=== PATIENT | female | born 1965 | race Caucasian/White ===

== ENCOUNTER 2020-01-13 13:57 | Outpatient (REF) | payer OTHER, SELFPAY ==
[2020-01-13 15:11] LABS: COVID-19 Test Negative (Negative)
[2020-01-13 16:32] LABS: IDNOW Serial# 55D5AD1C
== END 2020-01-13 13:58 | disposition home or self-care (01) ==
LOC: HO.LAB 13:57
PROVIDERS: Visit Provider Internal Medicine
DX: Z20.828 Contact with and (suspected) exposure to other viral communicable diseases (principal)
CPT/HCPCS: 87635; C9803

== ENCOUNTER 2020-01-28 14:21 | Outpatient (REF) | payer OTHER, SELFPAY ==
[2020-01-28 14:46] LABS: COVID-19 Test Negative (Negative)
== END 2020-01-28 14:22 | disposition home or self-care (01) ==
LOC: HO.LAB 14:21
PROVIDERS: Visit Provider Internal Medicine
DX: Z20.828 Contact with and (suspected) exposure to other viral communicable diseases (principal)
CPT/HCPCS: 87635; C9803

== ENCOUNTER 2021-08-30 14:45 | Outpatient (REF) | payer OTHER, SELFPAY ==
--- NOTE | ~2021-08-30 | XR_ITS ---
EXAMINATION: XR CALCANEUS, LEFT CLINICAL INFORMATION: Left achilles pain and swelling. COMPARISON: None TECHNIQUE: Lateral and axial views of the left calcaneus were obtained. FINDINGS: There is no fracture or dislocation or bony destructive process. No ankle capsular effusion. Visualized subtalar joint unremarkable. There is bulky posterior and moderate plantar calcaneal spurs. No erosive change or periostitis. The retrocalcaneal recess is preserved. There is subtle fusiform enlargement distal Achilles approximately 3 cm proximal to the insertion. XR/XR calcaneus LT min 2V IMPRESSION: -Mild fusiform enlargement Achilles. Retrocalcaneal recess preserved. -Posterior and plantar calcaneal spurs.
--- NOTE | ~2021-08-30 | XR_ITS ---
EXAMINATION: XR HAND, RIGHT CLINICAL INFORMATION: Pain right hand COMPARISON: None TECHNIQUE: PA, lateral, and oblique views of the right hand. FINDINGS: No fracture, dislocation, destructive process. Normal bony mineralization. No periarticular demineralization. No carpal narrowing or erosive change or chondrocalcinosis. The MCP and PIP joints are unremarkable. There are some benign small cystic changes first metacarpal head. No no matrix mineralization. No periostitis. There is osteoarthritis involving the DIP joints, greatest index finger and next greatest 34th fingers. No definite erosive change to suggest erosive osteoarthropathy. XR/XR hand RT min 3V IMPRESSION: -Osteoarthritis PIP joint, greatest second, third, fourth fingers.
== END 2021-08-30 14:46 | disposition home or self-care (01) ==
LOC: HO.XRAY 14:45
PROVIDERS: PCP Internal Medicine; Visit Provider Internal Medicine
DX: M79.641 Pain in right hand (principal); R60.0 Localized edema; M76.62 Achilles tendinitis, left leg
CPT/HCPCS: 73130; 73650

== ENCOUNTER 2021-08-31 06:15 | Outpatient (REF) | payer OTHER, SELFPAY ==
[2021-08-31 06:36] LABS: MANUAL DIFF FLAG NO
[2021-08-31 07:40] LABS: Basophils Absolute Auto 0.1 X10*3/uL (0.0-0.2); Basophils Percent Auto 0.9 % (0-2); Eosinophils Absolute Auto 0.2 X10*3/uL (0.0-0.4); Eosinophils Percent Auto 2.4 % (0-4); Hematocrit 39.4 % (37.0-47.0); Hemoglobin 12.7 g/dl (12.0-16.0); Imm Gran Abs Auto 0.03 X10*3/uL (0.00-0.03); Imm Gran Pct Auto 0.4 % (0.0-0.4); Lymphocytes Absolute Auto 3.4 X10*3/uL (1.2-4.9); Lymphocytes Percent Auto 41.9 % (20-40); Mean Corpuscular HGB Conc 32.2 g/dl (31.0-35.0); Mean Corpuscular Hemoglobin 27.4 pg (27.0-33.0); Mean Corpuscular Volume 85.1 fL (80.0-98.0); Mean Platelet Volume 10.7 fL (9.4-12.3); Monocytes Absolute Auto 0.7 X10*3/uL (0.1-1.2); Monocytes Percent Auto 8.7 % (2-11); Neutrophils Absolute Auto 3.7 x10*3/uL (2.0-8.3); Neutrophils Percent Auto 45.7 % (45-73); Platelet Count 251 X10*3/uL (160-400); Red Blood Count 4.63 X10*6/uL (4.20-5.50); Red Cell Distribution Width 13.1 % (11.0-16.0)
[2021-08-31 08:09] LABS: Alanine Aminotransferase 17 U/L (0-31); Albumin Level 4.1 g/dL (3.5-5.0); Alkaline Phosphatase 90 U/L (39-117); Anion Gap 11 (12-20); Aspartate Amino Transferase 20 U/L (5-31); Bilirubin Total 0.3 mg/dL (0.0-1.0); Blood Urea Nitrogen 19 mg/dL (9-16); C Reactive Protein 0.17 mg/dL (< or = 0.50); Calcium 9.2 mg/dL (8.4-10.2); Carbon Dioxide 27 mmol/L (22-29); Chloride 106 mmol/L (96-108); Cholesterol 209 mg/dL; Estimated Glomerular Filt Rate > 60; Glucose Fasting 96 mg/dL (60-99); HDL Cholesterol 55 mg/dL; LDL Cholesterol Calculated 140 mg/dl; Potassium 4.1 mmol/L (3.3-5.1); Sodium 140 mmol/L (135-145); Total Protein 6.9 g/dL (6.5-8.0); Triglycerides 74 mg/dL
== END 2021-08-31 06:16 | disposition home or self-care (01) ==
LOC: HO.LAB 06:15
PROVIDERS: PCP Internal Medicine; Visit Provider Internal Medicine
DX: Z00.00 Encounter for general adult medical examination without abnormal findings (principal); R60.0 Localized edema
CPT/HCPCS: 36415; 80053; 80061; 85025; 86140

== ENCOUNTER 2022-01-12 07:18 | Outpatient (REF) | payer OTHER, SELFPAY ==
[2022-01-12 08:25] LABS: Cholesterol 195 mg/dL; HDL Cholesterol 50 mg/dL; LDL Cholesterol Calculated 125 mg/dl; Triglycerides 100 mg/dL
== END 2022-01-12 07:19 | disposition home or self-care (01) ==
LOC: HO.LAB 07:18
PROVIDERS: PCP Internal Medicine; Visit Provider Internal Medicine
DX: Z13.220 Encounter for screening for lipoid disorders (principal)
CPT/HCPCS: 36415; 80061

== ENCOUNTER 2022-06-20 12:23 | Outpatient (REF) | payer OTHER, SELFPAY ==
--- NOTE | ~2022-06-20 | XR_ITS ---
EXAMINATION: XR HAND, LEFT CLINICAL INFORMATION: Pain fifth finger COMPARISON: None available. TECHNIQUE: PA, lateral, and oblique views of the left hand. FINDINGS: No acute fracture, dislocation. First CMC moderate-severe arthritis, joint space loss, osteophytes, subchondral cysts. Mild first MCP and IP joint arthritis. There is a lucency in the lunate, suboptimally evaluated due to overlapping densities, possible degenerative cysts. There is a fifth DIP joint arthritis, with joint space loss, osteophytes, subchondral cysts.. Arthritis also present in the third and fourth DIP joints. No definite marginal erosions. No abnormal soft tissue calcification. XR/XR hand LT 2V IMPRESSION: *Fifth DIP joint osteoarthritis. Additionally osteoarthritis, as detailed above. *No evidence of acute fracture or dislocation.
== END 2022-06-20 12:24 | disposition home or self-care (01) ==
LOC: HO.XRAY 12:23
PROVIDERS: PCP Internal Medicine; Visit Provider Internal Medicine
DX: M19.042 Primary osteoarthritis, left hand (principal)
CPT/HCPCS: 73120

== ENCOUNTER → 2022-07-31 10:07 | Outpatient (BNVA) | payer OTHER, SELFPAY | PROVIDERS: PCP Internal Medicine; Visit Provider Orthopaedic Surgery ==

== ENCOUNTER 2022-09-17 06:14 | Outpatient (REF) | payer OTHER, SELFPAY ==
[2022-09-17 11:25] LABS: MANUAL DIFF FLAG NO
[2022-09-17 11:55] LABS: Basophils Absolute Auto 0.1 X10*3/uL (0.0-0.2); Basophils Percent Auto 0.9 % (0-2); Eosinophils Absolute Auto 0.2 X10*3/uL (0.0-0.4); Hematocrit 39.8 % (37.0-47.0); Hemoglobin 12.7 g/dl (12.0-16.0); Imm Gran Abs Auto 0.02 X10*3/uL (0.00-0.03); Imm Gran Pct Auto 0.3 % (0.0-0.4); Lymphocytes Percent Auto 46.9 % (20-40); Mean Corpuscular HGB Conc 31.9 g/dl (31.0-35.0); Mean Corpuscular Hemoglobin 27.9 pg (27.0-33.0); Mean Corpuscular Volume 87.5 fL (80.0-98.0); Mean Platelet Volume 10.4 fL (9.4-12.3); Monocytes Absolute Auto 0.6 X10*3/uL (0.1-1.2); Monocytes Percent Auto 9.1 % (2-11); Neutrophils Absolute Auto 2.6 x10*3/uL (2.0-8.3); Neutrophils Percent Auto 39.8 % (45-73); Platelet Count 254 X10*3/uL (160-400); Red Blood Count 4.55 X10*6/uL (4.20-5.50); Red Cell Distribution Width 13.3 % (11.0-16.0); White Blood Count 6.4 X10*3/uL (4.8-10.8)
[2022-09-17 12:34] LABS: Anion Gap 11 (12-20); Blood Urea Nitrogen 13 mg/dL (9-16); Calcium 9.4 mg/dL (8.4-10.2); Carbon Dioxide 29 mmol/L (22-29); Chloride 104 mmol/L (96-108); Cholesterol 202 mg/dL; Estimated Glomerular Filt Rate > 60; Glucose Fasting 90 mg/dL (60-99); HDL Cholesterol 59 mg/dL; LDL Cholesterol Calculated 129 mg/dl; Potassium 3.9 mmol/L (3.3-5.1); Sodium 140 mmol/L (135-145); Triglycerides 74 mg/dL
== END 2022-09-17 06:15 | disposition home or self-care (01) ==
LOC: HO.HMGCLDS 06:14
PROVIDERS: PCP Internal Medicine; Visit Provider Internal Medicine
DX: E78.00 Pure hypercholesterolemia, unspecified (principal); J31.0 Chronic rhinitis
CPT/HCPCS: 36415; 80048; 80061; 85025

== ENCOUNTER 2024-10-31 23:30 | Inpatient (IN) | payer OTHER, SELFPAY ==
--- NOTE | ~2024-10-31 | CT_ITS ---
EXAMINATION: CT ABDOMEN WITHOUT AND WITH CONTRAST CLINICAL INFORMATION: Right adrenal mass COMPARISON: November 01, 2024. TECHNIQUE: Contiguous axial thin section helical images of the abdomen were performed before and after the administration of 85 mL of Omnipaque 350 intravenous contrast. The data set was reformatted in the coronal and sagittal planes and reviewed on an independent workstation. No reported immediate complications. This CT examination was performed using dose optimization techniques as appropriate, variously including the following: *Automated exposure control *Adjustment of mA and/or kV according to patient size (this includes techniques or standardized protocols for targeted exams where dose is matched to indication/reason for exam; i.e. extremities or head) *Use of iterative reconstruction technique. DLP: 366 mGy centimeter. FINDINGS: LUNG BASES: Atelectasis lung bases. No gross acute airspace disease in the included [id number]. LIVER, GALLBLADDER, AND BILIARY TREE: Liver measures 17 cm. No enhancing lesion. Gallbladder is nondistended. No pericholecystic fluid collection or gallbladder wall thickening. Questionable tiny gallstone. No intrahepatic or extrahepatic biliary ductal dilatation. PANCREAS: No peripancreatic fluid collection. No gross focal lesion. No main pancreatic ductal dilatation. SPLEEN: 8 cm. No focal lesion. ADRENAL GLANDS AND KIDNEYS: Right adrenal gland: There is a 44 x 26 x 42 mm well-defined low-density lesion which measures 3.7 Hounsfield units in the noncontrast phase. This lesion has a punctate calcification. Left adrenal gland: Mild soft tissue fullness measuring 9 Hounsfield units without nodular lesion. Right kidney: No hydronephrosis. No nephrolithiasis. Normal enhancement pattern of the renal parenchyma. Normal urinary excretion into the collecting system. No gross renal mass. Left kidney: No hydronephrosis. No nephrolithiasis. Normal enhancement pattern of the renal parenchyma. Normal urinary excretion into the collecting system. No gross renal mass.. BOWEL LOOPS: No intestinal obstruction pattern. Abundant stool in the large intestine. Collapsed appearance of the left hemicolon. No gross intestinal wall thickening. LYMPH NODES: No specific prominent, retroperitoneum. VASCULAR: No aneurysm or dissection abdominal aorta. Calcified plaques in the infrarenal distal abdominal aorta. BONES: Multilevel thoracolumbar spondylosis pronounced at L5-S1 with vacuum phenomenon and decreased intervertebral disc height. No gross lytic or blastic lesions. Small fat-containing umbilical hernia. 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 Nodular lesions between 3 to 5 cm are occasionally malignant. Fleischner guidelines were followed. Electronically signed by: Merritt Peraza MD 11/02/2024 11:17 AM EDT RP
--- NOTE | ~2024-10-31 | CT_ITS ---
CLINICAL HISTORY: abd pain, fever CT abdomen and pelvis with contrast Comparison: None provided Findings: There is a small sliding hiatal hernia. The liver is enlarged in size with the right hepatic lobe measuring 19.2 cm in length. 4.5 cm right adrenal gland nodule is present containing single internal calcification. The gallbladder, pancreas, spleen, left adrenal gland, and bilateral kidneys appear within normal limits. There is long segment wall thickening of the large bowel. There is also mild wall thickening of the terminal ileum and several small bowel loops. There is no evidence of bowel obstruction. The appendix appears within normal limits. There is no pneumoperitoneum or ascites. Small fat containing umbilical hernia is present. The urinary bladder appears normal. There is no adenopathy. Moderate to severe degenerative changes are seen at L5/S1. No acute osseous abnormality is identified. No aggressive lytic or blastic lesion is seen. IMPRESSION: 1. Long segment wall thickening of the large and small bowel consistent with an enterocolitis. 2. 4.5 cm right adrenal gland mass, which is incompletely characterized. Recommend nonemergent CT adrenal mass protocol for further evaluation. 3. Mild hepatomegaly. This document has been electronically signed by: Matilde Bustos on 11/01/2024 05:32:08
[2024-10-31 23:33] VITALS: BP 142/75; PULSE 101; RESP 18; TEMP 36.7; O2SAT 97; BMI 28.1
[2024-10-31 23:58] LABS: Hematocrit 41.0 % (37.0-47.0); Hemoglobin 14.5 g/dl (12.0-16.0); Mean Corpuscular HGB Conc 35.4 g/dl (31.0-35.0); Mean Corpuscular Hemoglobin 28.0 pg (27.0-33.0); Mean Corpuscular Volume 79.2 fL (80.0-98.0); NRBC Abs Auto 0.000 X10*3/uL (0.0-0.012); NRBC Pct Auto 0.0 /100WBC (0.0-0.2); Platelet Count 207 X10*3/uL (160-400); Red Blood Count 5.18 X10*6/uL (4.20-5.50); White Blood Count 7.1 X10*3/uL (4.8-10.8)
[2024-11-01] VITALS (13 sets, daily range): BP systolic 107–140; BP diastolic 56–85; PULSE 76–95; RESP 16–19; TEMP 36–37.6; O2SAT 93–99; BMI 29.2
[2024-11-01 00:08] LABS: Alanine Aminotransferase 37 U/L (0-31); Albumin Level 4.2 g/dL (3.5-5.0); Alkaline Phosphatase 94 U/L (39-117); Anion Gap 16 (12-20); Aspartate Amino Transferase 32 U/L (5-31); Blood Urea Nitrogen 13 mg/dL (9-16); Calcium 9.2 mg/dL (8.4-10.2); Carbon Dioxide 24 mmol/L (22-29); Chloride 93 mmol/L (96-108); Creatinine Clr Calc Pharmacy 74.6; Estimated Glomerular Filt Rate > 60; Potassium 3.7 mmol/L (3.3-5.1); Sodium 129 mmol/L (135-145); Total Protein 7.5 g/dL (6.5-8.0)
--- OUTSIDE RECORDS SUMMARY | 2024-11-01 00:15 | XMS_ITS | Patient Health Record ---
Author Organization [facility] Address [address] [place] [id number] Care Team Providers Care Desilverizer Name Role Phone Erwin Daniel MD Primary Care Provider Tello Huang Unavailable [phone] Allergies Allergen (clinical drug ingredient) Drug/Non Drug Allergy documented on EMR Reaction Allergy Type Onset Date Status moxifloxacin Vigamox swelling Drug Allergy Acti ve Reason For Referral No Information Immunizations Vaccine Route Administration Date Status Comme nts COVID-19 Pfizer BioNTech Vaccine Unknown 01/09/2021 Adm inistered 12/19/20 Social History Tobacco Use: Social History Observation Description Date Details (start date - stop date) Former Smoker NA - NA Tobacco Use/Smoking Question Answer Notes Are you a: former smoker Additional Findings: Tobacco Non-User Current no n-smoker Alcohol Screen Question Answer Notes Did you have a drink contain ing alcohol in the past year? Yes How often did you have a dri nk containing alcohol in the past year? Monthly or less (1 point) Points 1 Interpretation Negative Tobacco use other than smoking: Question Answer Notes Are you an other tobacco user? No Plan Of Treatment No Information Insurance Providers Payer Name Payer Address Payer Phone Subscriber Number Group Number Insured Name Patient Relationship to Insured Coverage Start Date Coverage End Date [employer] Benefits [address] [address] [place] [address] [id number] Lisette Baker Self - patient is the insured Medical (General) History Surgical History Surgery Date(Month/Year)
[2024-11-01 00:36] LABS: Neutrophils Percent Manual 51 % (45-73)
[2024-11-01 00:38] LABS: Band Neutrophils Percent 19 % (3-5); Lymphocytes Absolute Manual 1.3 X10*3/uL (1.2-4.9); Lymphocytes Percent Manual 18 % (20-40); Monocytes Absolute Manual 0.9 X10*3/uL (0.1-1.2); Monocytes Percent Manual 12 % (2-11); Neutrophils Absolute Manual 5.0 X10*3/uL (2.0-8.3)
[2024-11-01 00:39] LABS: Acanthocytes 1+ (0-2) /OIF; Large Platelet PRESENT; Ovalocytes 2+ (15-30) /OIF; RBC Morphology NOTED; Toxic Granulation PRESENT; Toxic Vacuolation PRESENT
--- NOTE | 2024-11-01 01:00 | ED_ITS ---
HPI - General Adult General Chief complaint: Abdominal Pain Stated complaint: n/v/d Time Seen by Provider: 11/01/24 00:57 Source: patient Mode of arrival: ambulatory Limitations: no limitations History of Present Illness ED Provider: Dr. Shayy De Leon HPI narrative: 59-year-old female with no significant past medical history presenting with abdominal pain and watery diarrhea, fevers as high as 103.1 today ongoing for the last 4 days or so. Patient states that she helped her son move into a new dorm room on Friday and had been cleaning his apartment. She used gloves and bleached most of the surfaces there. That night, she had a hamburger at a restaurant. The following day, she developed back pain and generalized malaise and fatigue. On , she started having profuse, watery diarrhea associated with fever as high as 103.1. She has been attempting small sips of water as well as different hydrating fluids however, everything seems to affect her stomach severely causing her to have cramping and then immediate diarrhea. Denies associated vomiting and diarrhea. Describes occasional epigastric pain but most of her pain is lower in the abdomen. 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 No questionable food intake other than the hamburger she had on Friday. No drinking from [place] or exposures to animals. No recent antibiotic use. Related Data Home Medications ?Medication ?Instructions ?Recorded ?Confirmed No Known Home Meds 07/31/22 07/31/22 Allergies Allergy/AdvReac Type Severity Reaction Status Date / Time No Known Allergies Allergy Unverified 10/31/24 23:36 Review of Systems 2 Review of Systems: As per HPI, full review of systems performed and negative but for the above mentioned pertinent positives and negatives. 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 SKIN: Normal skin color for ethnicity, warm, dry, no rashes noted. HEENT: Normocephalic, atraumatic, no stridor, dry mucous membranes, dentition intact, EOMI, PERRLA. NECK: Soft, supple, full ROM, midline structures nontender, no step-offs, no deformities, no lymphadenopathy. CHEST: Heart regular tachycardia, no murmurs, symmetric chest rise and fall. PULMONARY: Clear to auscultation bilaterally, diminished at the bases, no labored breathing, no wheezes/rhales/rhonchi. ABDOMINAL: Soft, nondistended, diffusely tender to palpation without rebound or guarding, hyperactive bowel sounds in all quadrants. : Deferred. MUSCULOSKELETAL: Normal tone, full range of motion, no deformities, no peripheral edema. NEURO: Alert and oriented x3, CN II through XII intact, equal strength and sensation bilateral upper and lower extremities, no focal neurologic deficits. PSYCHIATRIC: Flat affect, fluid speech, good eye contact and appropriate demeanor. Vital Signs: Vital Signs - 24 hr 10/31/24 23:33 11/01/24 00:17 11/01/24 01:23 Temperature 98.1 F 98.6 F Pulse Rate 101 H 95 85 Respiratory Rate 18 19 16 Blood Pressure 142/75 H 128/85 113/77 Pulse Oximetry 97 96 99 Oxygen Delivery Method Room Air Room Air Room Air 11/01/24 01:37 11/01/24 01:52 11/01/24 02:04 Temperature 98.2 F Pulse Rate 84 88 88 Respiratory Rate 16 16 16 Blood Pressure 128/72 132/75 132/75 Pulse Oximetry 98 98 96 Oxygen Delivery Method Room Air Room Air Room Air 11/01/24 02:21 11/01/24 02:22 11/01/24 02:53 Temperature 99.4 F 99.7 F Pulse Rate 87 89 81 Respiratory Rate 16 16 Blood Pressure 130/62 122/57 L 111/56 L Pulse Oximetry 97 97 98 Oxygen Delivery Method Room Air Room Air Room Air 11/01/24 04:50 11/01/24 07:37 Temperature 98.7 F 98.3 F Pulse Rate 76 78 Respiratory Rate 18 16 Blood Pressure 107/62 110/64 Pulse Oximetry 96 94 Oxygen Delivery Method Room Air Room Air BMI result Body Mass Index 28.1 Medications Administered Discontinued Medications Generic Name Dose Route Start Last Admin Trade Name Freq PRN Reason Stop Dose Admin Piperacillin Sod/Tazobactam 100 mls @ 200 mls/hr 11/01/24 00:58 11/01/24 02:04 Sod 4.5 gm/ Sodium Chloride IV 11/01/24 01:27 Infused ONCE ONE Infusion Lactated Ringer's 2,298 mls @ 2,298 mls/hr 11/01/24 00:58 11/01/24 02:20 Lr 30 ml/kg infuse over 1 hr (2298 ml) 11/01/24 01:57 Infused IV Infusion .Q1H ONE Acetaminophen 1,000 mg in 100 mls @ 400 mls/hr 11/01/24 03:01 11/01/24 03:30 Ofirmev IV 11/01/24 03:15 Infused ONCE ONE Infusion Metronidazole 500 mg in 100 mls @ 100 mls/hr 11/01/24 03:02 11/01/24 04:33 Flagyl IV 11/01/24 04:01 Infused ONCE ONE Infusion Iohexol 85 ml 11/01/24 04:17 11/01/24 04:23 Iohexol 350 Mg/Ml 100 Ml Infus..Btl IV 11/01/24 04:18 85 ml ONCE ONE Administration Medical Decision Making Medical Decision Making [facility] Narrative: Patient presents today with a chief complaint of acute diarrhea. Differential diagnosis includes enteritis, colitis such as ischemic or C diff, inflammatory bowel disease, bacterial or viral diarrhea, GI bleed, hypovolemia, among others. Patient in having abdominal pain. No recent antibiotic use. 1:13 AM 11/01/2024 (Dr. Shayy De Leon, D.O.) sepsis alert called for bandemia 19 percent, likely source infectious diarrhea. Given her a dose of Zosyn, we will add on Flagyl. Awaiting C diff and stool culture results for appropriate therapy otherwise. Blood pressure remains stable, heart rate was initially elevated when she arrived (I suspect she is severely dehydrated in the setting of 4 days of continuous watery diarrhea). She will receive 30 cc/kg fluid bolus and we will continue to monitor for fever. Patient will be admitted for further care and evaluation of diarrheal illness, sepsis. CT shows enteritis and an incidental adrenal gland mass. Admitted in guarded condition. Differential Diagnosis Differential Diagnoses: The differential diagnosis associated with the presentation includes (As above) Admission/Observation Consideration of admission/observation: Escalation of care including admission/observation considered Lab Data [facility] Lab Attestation statement: I reviewed the patient's lab results. 10/31/24 23:47 10/31/24 23:47 Labs: Lab Results 10/31/24 11/01/24 11/01/24 Range/Units 23:47 01:07 01:43 WBC 7.1 (4.8-10.8) X10*3/uL RBC 5.18 (4.20-5.50) X10*6/uL Hgb 14.5 (12.0-16.0) g/dl Hct 41.0 (37.0-47.0) % MCV 79.2 L (80.0-98.0) fL MCH 28.0 (27.0-33.0) pg MCHC 35.4 H (31.0-35.0) g/dl RDW 13.2 (11.0-16.0) % Plt Count 207 (160-400) X10*3/uL MPV 10.1 (9.4-12.3) fL Immature Gran % (Auto) Cancelled Neut % (Auto) Cancelled Lymph % (Auto) Cancelled [place] % (Auto) Cancelled Eos % (Auto) Cancelled Baso % (Auto) Cancelled Lymph # (Auto) Cancelled [place] # (Auto) Cancelled Eos # (Auto) Cancelled Baso # (Auto) Cancelled Abs Immat Gran (auto) Cancelled Absolute Neuts (auto) Cancelled Absolute Nucleated RBC 0.000 (0.0-0.012) X10*3/uL Nucleated RBC % (auto) 0.0 (0.0-0.2) /100WBC Neutrophils % (Manual) 51 (45-73) % Band Neutrophils % 19 H (3-5) % Lymphocytes % (Manual) 18 L (20-40) % Monocytes % (Manual) 12 H (2-11) % Abs Neuts (Manual) 5.0 (2.0-8.3) X10*3/uL Lymphocytes # (Manual) 1.3 (1.2-4.9) X10*3/uL Monocytes # (Manual) 0.9 (0.1-1.2) X10*3/uL Toxic Granulation PRESENT Toxic Vacuolation PRESENT Platelet Estimate NORMAL (NORMAL) Large Platelets PRESENT Giant Platelets PRESENT Plt Morphology Comment NOTED RBC Morphology NOTED Ovalocytes 2+ (15-30) /OIF Acanthocytes (Spur) 1+ (0-2) /OIF Sodium 129 L (135-145) mmol/L Potassium 3.7 (3.3-5.1) mmol/L Chloride 93 L (96-108) mmol/L Carbon Dioxide 24 (22-29) mmol/L Anion Gap 16 (12-20) BUN 13 (9-16) mg/dL Creatinine 0.82 (0.5-1.4) mg/dL Estim Creat Clear Calc 74.6 Estimated GFR > 60 Random Glucose 121 H (60-115) mg/dL Lactic Acid 1.0 (0.5-2.0) mmol/L Calcium 9.2 (8.4-10.2) mg/dL Total Bilirubin 0.4 (0.0-1.0) mg/dL AST 32 H (5-31) U/L ALT 37 H (0-31) U/L Alkaline Phosphatase 94 (39-117) U/L Total Protein 7.5 (6.5-8.0) g/dL Albumin 4.2 (3.5-5.0) g/dL Urine Color Urine Appearance Urine pH (5.0-9.0) Ur Specific [place] (1.005-1.025) Urine Protein (Neg-Trace) mg/dL Urine Glucose (UA) (Negative) mg/dL Urine Ketones (Negative) mg/dL Urine Blood (Negative) Urine Nitrite (Negative) Ur Leukocyte Esterase (Negative) Urine RBC (0-2) /HPF Urine WBC (0-5) /HPF Ur Squamous Epith Cells (0-2) /HPF Urine Bacteria (None Seen) Hyaline Casts (0-2) /LPF C. difficile Tox B Gene NEGATIVE (Negative) 11/01/24 Range/Units 06:33 WBC (4.8-10.8) X10*3/uL RBC (4.20-5.50) X10*6/uL Hgb (12.0-16.0) g/dl Hct (37.0-47.0) % MCV (80.0-98.0) fL MCH (27.0-33.0) pg MCHC (31.0-35.0) g/dl RDW (11.0-16.0) % Plt Count (160-400) X10*3/uL MPV (9.4-12.3) fL Immature Gran % (Auto) Neut % (Auto) Lymph % (Auto) [place] % (Auto) Eos % (Auto) Baso % (Auto) Lymph # (Auto) [place] # (Auto) Eos # (Auto) Baso # (Auto) Abs Immat Gran (auto) Absolute Neuts (auto) Absolute Nucleated RBC (0.0-0.012) X10*3/uL Nucleated RBC % (auto) (0.0-0.2) /100WBC Neutrophils % (Manual) (45-73) % Band Neutrophils % (3-5) % Lymphocytes % (Manual) (20-40) % Monocytes % (Manual) (2-11) % Abs Neuts (Manual) (2.0-8.3) X10*3/uL Lymphocytes # (Manual) (1.2-4.9) X10*3/uL Monocytes # (Manual) (0.1-1.2) X10*3/uL Toxic Granulation Toxic Vacuolation Platelet Estimate (NORMAL) Large Platelets Giant Platelets Plt Morphology Comment RBC Morphology Ovalocytes /OIF Acanthocytes (Spur) /OIF Sodium (135-145) mmol/L Potassium (3.3-5.1) mmol/L Chloride (96-108) mmol/L Carbon Dioxide (22-29) mmol/L Anion Gap (12-20) BUN (9-16) mg/dL Creatinine (0.5-1.4) mg/dL Estim Creat Clear Calc Estimated GFR Random Glucose (60-115) mg/dL Lactic Acid (0.5-2.0) mmol/L Calcium (8.4-10.2) mg/dL Total Bilirubin (0.0-1.0) mg/dL AST (5-31) U/L ALT (0-31) U/L Alkaline Phosphatase (39-117) U/L Total Protein (6.5-8.0) g/dL Albumin (3.5-5.0) g/dL Urine Color Yellow Urine Appearance Clear Urine pH 6.5 (5.0-9.0) Ur Specific [place] >= 1.030 H (1.005-1.025) Urine Protein Negative (Neg-Trace) mg/dL Urine Glucose (UA) Negative (Negative) mg/dL Urine Ketones Negative (Negative) mg/dL Urine Blood Moderate (2+) H (Negative) Urine Nitrite Negative (Negative) Ur Leukocyte Esterase Negative (Negative) Urine RBC 6-10 H (0-2) /HPF Urine WBC 0-5 (0-5) /HPF Ur Squamous Epith Cells 0-2 (0-2) /HPF Urine Bacteria None Seen (None Seen) Hyaline Casts 0-2 (0-2) /LPF C. difficile Tox B Gene (Negative) Critical Care Time Critical Care Time Total Critical Care Time: 36 Attestation: CRITICAL CARE TIME: 36 minutes of critical care time was spent in direct patient care at the bedside or in the immediate area with this patient. Critical care was necessary to treat or prevent imminent or life-threatening deterioration of the following conditions sepsis due to diarrheal illness, enteritis. This patient is high risk for decompensation and/or . This time was spent assessing and managing the patient, interpreting labs and imaging, coordinating care with other medical providers, gathering history from either the patient, their representatives, EMS or chart review, and discussing management with the admitting team. Discharge Plan Discharge Clinical Impression: Acute infectious diarrhea, Bandemia, Sepsis, Hyponatremia Patient Disposition: Admitted As Inpatient Interventions: Admission Worksheet (ED) Last Done: 11/01/24 07:51 Print Language: Iranian
[2024-11-01] MEDS: LACTATED RINGERS 2298 ML IV (01:16)
[2024-11-01 02:46] LABS: CDiff Gene PCR NEGATIVE (Negative)
[2024-11-01] MEDS: metroNIDAZOLE/NS 500 MG/100 ML PIGGYBACK 100 MG IV (03:09)
[2024-11-01] MEDS: iohexoL 350 MG/ML 100 ML INFUS..BTL 85 ML IV (04:23)
--- NOTE | 2024-11-01 04:50 | PC.NURSE ---
Resumed care of patient at 0300, she was resting comfortably, IV APAP and Flagyl given per MAY. Temp remains <100F post APAP. She was requesting to trial ice chips, ice chips given, however pt had diarrhea x2 after having a couple. Pt continued to deny nausea/vomiting. Pt reports diarrhea is clear/green in color, denies blood. Reporting abdominal cramping POST diarrhea that resolves after a few minutes. Call blanca within reach, awaiting lab results to determine dispo.
[2024-11-01 07:22] LABS: Appearance Urine Clear; Glucose Urine UA Negative (Negative); PH 6.5 (5.0-9.0); Specific Gravity - Urine >= 1.030 (1.005-1.025); UMIC TRIGGER UACC YES
--- NOTE | 2024-11-01 07:42 | PM.IMHP ---
History of Present Illness Date of Service: 11/01/24 Attending physician on admission: [facility] Chief Complaint: Abd pain and diarrhea Pt is a 59-year-old female with no significant PMH not on home meds who presents to the ED with?intractable abdominal cramping and nonbloody diarrhea x4 days. Pt reports symptoms began 5 days ago on Friday when she felt weak and fatigued. The following day she developed abdominal cramping and nonbloody diarrhea with many episodes per day. Since then has been unable to tolerate food or drink: Every time she has p.o. intake will subsequently developed cramping and diarrhea shortly thereafter. Diarrhea lately has been green colored. Had fever and chills measured at home as high as 103 degrees. Denies significant recent travel, suspicious food, or sick contacts. Reports mild lower abdominal tenderness which is tolerable; however, cramping after intake is severe. No nausea or vomiting. Denies chest pain or pressure. SOB or difficulty breathing. In the ED pt's vitals significant for tachycardia of 101, otherwise stable. Labs were significant for sodium 129, otherwise grossly unremarkable and around baseline for pt. No leukocytosis. Stable H&H. Creatinine slightly bumped up at 0.82. Lactic acid WNL. AST 32 and ALT 37. C diff negative. UA negative. CT of abdomen and pelvis found entero colitis, as well as 4.5 cm right adrenal gland mass. Pt was treated in the ED with IVF, acetaminophen, Zosyn, and metronidazole. Pt is admitted to the hospital for treatment and further evaluation of intractable abdominal cramping and diarrhea in the setting of entero colitis. 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 Meds Allergies Allergy/AdvReac Type Severity Reaction Status Date / Time No Known Allergies Allergy Unverified 10/31/24 23:36 Active Medications: Current Medications Acetaminophen (Acetaminophen 325 Mg Tablet) 650 mg PO Q6H PRN PRN Reason: Pain, Mild 1-3,fever,headache Calcium Carbonate (Calcium Carbonate 750 Mg Tab.Chew) 750 mg PO Q4H PRN PRN Reason: Heartburn Magnesium Hydroxide (Milk Of Magnesia 30 Ml Oral.Susp) 30 ml PO DAILY PRN PRN Reason: Constipation Melatonin (Melatonin 3 Mg Tablet) 6 mg PO BEDTIME PRN PRN Reason: Insomnia Sodium Chloride (0.9 % Sodium Chloride Flush 3 Ml Syringe) 3 ml IVFLUSH QSHIFT [facility] Home Medications ?Medication ?Instructions ?Recorded ?Confirmed ?Last Taken ?Type No Known Home Meds 07/31/22 07/31/22 Unknown History Physical Exam Vital Signs and Narrative: Vital Signs: Last Vital Signs Temp 98.3 F 11/01/24 07:37 Pulse 78 11/01/24 07:37 Resp 16 11/01/24 07:37 BP 110/64 11/01/24 07:37 Pulse Ox 94 11/01/24 07:37 O2 Del Method Room Air 11/01/24 07:37 BMI result Body Mass Index 28.1 General: AOx3, no acute distress. Resting comfortably in bed Resp: CTA bilaterally CVS: S1, S2, RRR GI: +BS, no distention, lower abd tenderness Skin: Warm, dry Neuro: Cranial nerves II-XII grossly intact bilaterally. Motor grossly intact bilaterally Extremities: No edema Psych: Appropriate affect Results Labs 10/31/24 23:47 10/31/24 23:47 Labs: Laboratory Results - last 24 hr 10/31/24 11/01/24 11/01/24 23:47 01:07 01:43 MCV 79.2 L MCH 28.0 MCHC 35.4 H RDW 13.2 Plt Count 207 MPV 10.1 Immature Gran % (Auto) Cancelled Neut % (Auto) Cancelled Lymph % (Auto) Cancelled [place] % (Auto) Cancelled Eos % (Auto) Cancelled Baso % (Auto) Cancelled Lymph # (Auto) Cancelled [place] # (Auto) Cancelled Eos # (Auto) Cancelled Baso # (Auto) Cancelled Abs Immat Gran (auto) Cancelled Absolute Neuts (auto) Cancelled Absolute Nucleated RBC 0.000 Nucleated RBC % (auto) 0.0 Neutrophils % (Manual) 51 Band Neutrophils % 19 H Lymphocytes % (Manual) 18 L Monocytes % (Manual) 12 H Abs Neuts (Manual) 5.0 Lymphocytes # (Manual) 1.3 Monocytes # (Manual) 0.9 Toxic Granulation PRESENT Toxic Vacuolation PRESENT Platelet Estimate NORMAL Large Platelets PRESENT Giant Platelets PRESENT Plt Morphology Comment NOTED RBC Morphology NOTED Ovalocytes 2+ (15-30) Acanthocytes (Spur) 1+ (0-2) Anion Gap 16 Estim Creat Clear Calc 74.6 Estimated GFR > 60 Random Glucose 121 H Lactic Acid 1.0 Calcium 9.2 Total Bilirubin 0.4 AST 32 H ALT 37 H Alkaline Phosphatase 94 Total Protein 7.5 Albumin 4.2 Urine Color Urine Appearance Urine pH Ur Specific [place] Urine Protein Urine Glucose (UA) Urine Ketones Urine Blood Urine Nitrite Ur Leukocyte Esterase Urine RBC Urine WBC Ur Squamous Epith Cells Urine Bacteria Hyaline Casts C. difficile Tox B Gene NEGATIVE 11/01/24 06:33 MCV MCH MCHC RDW Plt Count MPV Immature Gran % (Auto) Neut % (Auto) Lymph % (Auto) [place] % (Auto) Eos % (Auto) Baso % (Auto) Lymph # (Auto) [place] # (Auto) Eos # (Auto) Baso # (Auto) Abs Immat Gran (auto) Absolute Neuts (auto) Absolute Nucleated RBC Nucleated RBC % (auto) Neutrophils % (Manual) Band Neutrophils % Lymphocytes % (Manual) Monocytes % (Manual) Abs Neuts (Manual) Lymphocytes # (Manual) Monocytes # (Manual) Toxic Granulation Toxic Vacuolation Platelet Estimate Large Platelets Giant Platelets Plt Morphology Comment RBC Morphology Ovalocytes Acanthocytes (Spur) Anion Gap Estim Creat Clear Calc Estimated GFR Random Glucose Lactic Acid Calcium Total Bilirubin AST ALT Alkaline Phosphatase Total Protein Albumin Urine Color Yellow Urine Appearance Clear Urine pH 6.5 Ur Specific [place] >= 1.030 H Urine Protein Negative Urine Glucose (UA) Negative Urine Ketones Negative Urine Blood Moderate (2+) H Urine Nitrite Negative Ur Leukocyte Esterase Negative Urine RBC 6-10 H Urine WBC 0-5 Ur Squamous Epith Cells 0-2 Urine Bacteria None Seen Hyaline Casts 0-2 C. difficile Tox B Gene Assessment and Plan (1) Enterocolitis: Status: Acute (2) Intractable diarrhea: Status: Acute (3) Hypokalemia: Status: Acute Plan Pt is a 59-year-old female with no significant PMH not on home meds who presents to the ED with?intractable abdominal cramping and nonbloody diarrhea x4 days. Pt is admitted to the hospital for treatment and further evaluation of intractable abdominal cramping and diarrhea in the setting of entero colitis. Enterocolitis Intractable diarrehea and abd cramping w/po intake x4 days; no N/V CT showing long segment wall thickening of large and small bowel consistent with enterocolitis No sepsis or lactic acidosis C diff negative, GI panel pending Will empirically treat with Zosyn, day 2 IVF, clear liquid diet for now, advance as tolerated GI consult Hyponatremia Initial sodium 129 In the setting of above Has received IVF Monitor Adrenal mass CT a/p showing 4.5 cm adrenal gland mass Will get CT adrenal mass protocol Full Code Attending:?Dr. Jean DVT Prophylaxis: Lovenox Pt will require a hospitalization of at least two nights for treatment of?intractable abdominal cramping and diarrhea in the setting of enterocolitis. Given that pt is unable to tolerate p.o. intake and symptoms have been ongoing for the past 4 days, pt will require hospital level care for administration of IVF, empiric IV antibiotics, specialist consultation, additional workup. Quality Stroke Does the patient have a stroke diagnosis?: No VTE Prior VTE?: No VTE Risk Level:: Medical - moderate - high VTE Device Contraindication: Treatment Not Indicated VTE Drug Contraindication: N/A - Med Ordered
--- NOTE | 2024-11-01 07:47 | PC.NURSE ---
patient a&ox3, vss, rr equal/non labored, pt c/o 5/10 abd pain. Pt requesting to speak with provider to review CT scan results will notify ED provider, additionally pt requested per pads and hot packs which were given per her request. call blanca within reach, plan of care ongoing
[2024-11-01] MEDS: 0.9 % Sodium Chloride Flush 3 ML SYRINGE IVFLUSH (08:46)
[2024-11-01] MEDS: Lactated Ringers 1,000 ML 125 ML IVCONT ×3 (09:23→23:43)
[2024-11-01 10:04] LABS: E. coli EAEC Not Detected (Not Detect.); E. coli EPEC Not Detected (Not Detect.); E. coli ETEC Not Detected (Not Detect.); E. coli STEC Not Detected (Not Detect.); Shigella sp./EIEC Not Detected (Not Detect.)
[2024-11-01 10:21] LABS: Hematocrit 41.5 % (37.0-47.0); Hemoglobin 14.6 g/dl (12.0-16.0); Mean Corpuscular HGB Conc 35.2 g/dl (31.0-35.0); Mean Corpuscular Hemoglobin 28.2 pg (27.0-33.0); Mean Corpuscular Volume 80.3 fL (80.0-98.0); NRBC Abs Auto 0.000 X10*3/uL (0.0-0.012); NRBC Pct Auto 0.0 /100WBC (0.0-0.2); Platelet Count 236 X10*3/uL (160-400); Red Blood Count 5.17 X10*6/uL (4.20-5.50); White Blood Count 8.4 X10*3/uL (4.8-10.8)
[2024-11-01 10:34] LABS: Anion Gap 15 (12-20); Blood Urea Nitrogen 10 mg/dL (9-16); Calcium 9.5 mg/dL (8.4-10.2); Carbon Dioxide 29 mmol/L (22-29); Chloride 95 mmol/L (96-108); Creatinine Clr Calc Pharmacy 78.9; Estimated Glomerular Filt Rate > 60; Potassium 3.3 mmol/L (3.3-5.1); Sodium 136 mmol/L (135-145)
--- NOTE | 2024-11-01 12:43 | PHA.MEDREC ---
Pharmacy Consult ? Medication Reconciliation Pharmacy has completed the medication reconciliation.PT CONFIRMS NO HOME MEDS
--- NOTE | 2024-11-01 16:26 | P.EN_ITS ---
Event Note Date of Service: 11/01/24 Event Note: GI Consult-Full note dictated Imp: Salmonella gastroenteritis with associated diarrhea, fevers at home, abdominal pain, CT with evidence of inflammatory intestinal changes, and feeling systemically ill. She seems improved after 24 hours of IV hydration and antibio tics. Rec: Given her presentation requiring hospitalization, her age, and CT scan findings, I would continue antibiotics for total of 3-5 days but would err on the shorter time frame if getting better quickly given potential for prolonged carrier state. Should be able to change to po's in the next 24-48 hours. Advance diet as tolerated. 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 She was comfortable with this plan. Thanks Time Spent With Patient Time: Total time managing care of this patient today ____ minutes.
--- NOTE | 2024-11-02 03:16 | CONS_ITS ---
DATE OF SERVICE: 11/01/2024 REASON FOR CONSULTATION: Salmonella gastroenteritis. HISTORY OF PRESENT ILLNESS: The patient is a 59-year-old healthy female, who was in her usual state of health up until about 4 or 5 days prior to admission. She describes having gone to [place] to drop her son off at school and then eating in a restaurant with her family. She describes having had a hamburger with some salad. The next day, she was feeling somewhat weak, but had no other symptoms. The following day, she began having fevers. The day after that, she began having diarrhea and abdominal pain. The diarrhea and abdominal pain persisted for 72 hours finally prompting her to come to the ER yesterday. She was having frequent bouts of loose stool, but there was no hematochezia nor melena. She denies any associated vomiting. She did have a rather diffuse abdominal pain which was rather sharp at times but there was no associated jaundice. She denies any urinary symptoms. Prior to becoming ill, she was feeling quite fine and well without any particular GI symptoms. She usually enjoys a good appetite and generally does not have chronic heartburn or dysphagia. Her bowel movements had been normal without any changes or bleeding. Since hospitalization here, she did have a GI panel that came back positive for salmonella. She did receive 1 dose of Zosyn yesterday and today was started on IV ceftriaxone. She has been afebrile here in the hospital. She is still having diarrhea and abdominal pain today. She denies any ill contacts and reports that no one else became ill from eating in the restaurant. She had not been on any antibiotics at home. She denies any known family history of inflammatory bowel disease, nor GI malignancy. She has never had a colonoscopy. MEDICATIONS: At home, none. Medications here in the hospital include IV ceftriaxone started today, acetaminophen p.r.n., Lovenox, melatonin p.r.n., milk of magnesia p.r.n. PAST MEDICAL HISTORY: She denies any surgeries. She denies any history of heart disease, diabetes, stroke, lung disease or kidney disease. SOCIAL HISTORY: She is RN at the [employer]. She does not smoke nor use any significant amounts of alcohol. She is . FAMILY HISTORY: Noncontributory. REVIEW OF SYSTEMS: CONSTITUTIONAL: Prior to becoming ill, she was feeling well with good energy, good appetite. SKIN: No rash. No pruritus. CARDIAC: No chest pain. PULMONARY: No coughing or hemoptysis. GI: As above. URINARY: No dysuria. No hematuria. NEUROLOGIC: No headache or seizures. PHYSICAL EXAMINATION: GENERAL: The patient is a pleasant, alert, comfortable-appearing female. SKIN: Warm and dry. HEENT: Anicteric sclerae. Moist mucous membranes. NECK: Supple. CARDIAC: Normal S1, S2. ABDOMEN: Soft, nondistended. Bowel sounds are normal. She does have diffuse tenderness to palpation without mass, rebound, or guarding. EXTREMITIES: Had edema. LABORATORY DATA: White blood cell count yesterday was 7.1 and today was 8.4. Hemoglobin 14.6, MCV 80, platelets 236,000. Normal electrolytes today with a BUN of 10, creatinine 0.8. LFTs yesterday were normal other than minimal elevations of her liver enzymes. Stool GI panel was positive for Salmonella. Stool for C difficile was negative. She had a CT scan of her abdomen and pelvis this morning, which describes a long segment of bowel wall thickening of the large intestine as well as some mild wall thickening in the terminal ileum and other areas of the small intestine. There was no bowel obstruction nor any intraabdominal fluid. Also noted was a 4.5 cm right adrenal gland mass which was incompletely characterized. IMPRESSION: The patient is a healthy 59-year-old female presenting with acute salmonella gastroenteritis. Although she is healthy, her symptoms were quite severe and persistent, which led to hospitalization due to some relative dehydration, weakness, abdominal pain, and fevers at home. She does seem to be improving here. She has been on antibiotics now as well. She does appear to be clinically stable and improving based on her history. At this point, I will continue current supportive care and antibiotics, but try to minimize the antibiotics as much as possible given the risk of a prolonged carrier state. Her IV antibiotics will probably change to p.o. in the next 48 hours sometime tomorrow. Her diet can be advanced as tolerated. 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 If there is any further concern regarding the use of antibiotics, I would recommend an Infectious Disease consultation. However, hopefully, the antibiotics can be stopped within the next 2-3 days as long as she is showing rapid improvement. I did advise her that I do not think she requires a colonoscopy at this point. We did review that she might have some symptoms of a postinfectious irritable bowel syndrome, but that should resolve. I did review with her the need to have a screening colonoscopy at some point in the future since she reports she has never had a colonoscopy.. I did review the importance of that with her in regard to colorectal cancer prevention. However, we would certainly want to wait until everything is settled down as far as this acute illness is concerned before doing that. The patient understood all of this and was comfortable with the plan. Thank you for this consultation. MD CAITLIN Helton/SUDHEER / [phone] MTDD
[2024-11-02 03:28] VITALS: BP 116/65; PULSE 77; RESP 18; TEMP 37.1; O2SAT 96
[2024-11-02] MEDS: Lactated Ringers 1,000 ML 125 ML IVCONT ×2 (06:29→18:20)
[2024-11-02 06:52] LABS: Hematocrit 39.1 % (37.0-47.0); Hemoglobin 13.6 g/dl (12.0-16.0); Mean Corpuscular HGB Conc 34.8 g/dl (31.0-35.0); Mean Corpuscular Hemoglobin 27.9 pg (27.0-33.0); Mean Corpuscular Volume 80.3 fL (80.0-98.0); NRBC Abs Auto 0.000 X10*3/uL (0.0-0.012); NRBC Pct Auto 0.0 /100WBC (0.0-0.2); Platelet Count 222 X10*3/uL (160-400); Red Blood Count 4.87 X10*6/uL (4.20-5.50); White Blood Count 9.1 X10*3/uL (4.8-10.8)
[2024-11-02 07:10] LABS: Anion Gap 15 (12-20); Blood Urea Nitrogen 10 mg/dL (9-16); Calcium 9.6 mg/dL (8.4-10.2); Carbon Dioxide 29 mmol/L (22-29); Chloride 94 mmol/L (96-108); Creatinine Clr Calc Pharmacy 93.1; Estimated Glomerular Filt Rate > 60; Potassium 3.0 mmol/L (3.3-5.1); Sodium 135 mmol/L (135-145)
[2024-11-02 07:40] VITALS: BP 126/67; PULSE 82; RESP 16; TEMP 36.1; O2SAT 94
--- NOTE | 2024-11-02 09:13 | MHC.CM.PN ---
CM MET WITH PT AT BEDSIDE. PT LIVES WITH SPOUSE, IS FUNCTIONALLY INDEPENDENT AND EMPLOYED F/T. NO SERVICES OR DME. PT DECLINES COMPLETING A HCP AT THIS TIME. PCP HAS RETIRED, [facility] PROVIDER TO BE ESTABLISHED. DP: HOME, NO SERVICES IS ANTICIPATED. PT HAS RIDE HOME. CM WILL CONTINUE TO FOLLOW FOR ANY CHANGE TO DC PLAN/NEEDS.
[2024-11-02] MEDS: iohexoL 350 MG/ML 100 ML INFUS..BTL IV (09:44)
[2024-11-02] MEDS: Potassium Chloride Packet 20 MEQ PACKET 40 MEQ PO (11:01)
--- NOTE | 2024-11-02 11:56 | HO.PM.IMPN ---
Subjective Subjective Date of Service: 11/02/24 Interval History: Pt seen this am, states she still has abdominal cramping and diarrhea with loose greenish stools, her diet was advanced this today and she states as soon as she eats something she get diarrheal episode, She denies any nausea and vomiting, on ceftriaxone today, dx 2 of abx Review of Systems -ve except as stated above Physical Exam Exam: Exam: General: AOx3, no acute distress. Resting comfortably in bed Resp: CTA bilaterally CVS: S1, S2, RRR GI: +BS, no distention, lower abd tenderness Skin: Warm, dry Neuro: Cranial nerves II-XII grossly intact bilaterally. Motor grossly intact bilaterally Extremities: No edema Psych: Appropriate affect Vital Signs: Vital Signs: Last Vital Signs Temp 97.0 F 11/02/24 07:40 Pulse 82 11/02/24 07:40 Resp 16 11/02/24 07:40 BP 126/67 11/02/24 07:40 Pulse Ox 94 11/02/24 07:40 O2 Del Method Room Air 11/02/24 07:40 BMI result Body Mass Index 29.2 Objective Data Active Medications Acetaminophen (Acetaminophen 325 Mg Tablet) 650 mg PO Q6H PRN PRN Reason: Pain, Mild 1-3,fever,headache Calcium Carbonate (Calcium Carbonate 750 Mg Tab.Chew) 750 mg PO Q4H PRN PRN Reason: Heartburn Ceftriaxone Sodium (Ceftriaxone Sodium 1 Gm Vial) 1 gm IVPUSH Q24H [facility] Last Admin: 11/01/24 12:31 Dose: 1 gm Documented By: DILLON Enoxaparin Sodium (Enoxaparin Sodium 40 Mg/0.4 Ml Syringe) 40 mg SUBCUT Q24H [facility] Last Admin: 11/02/24 09:55 Dose: 40 mg Documented By: DILLON Lactated Ringer's (Lr) 1,000 mls @ 125 mls/hr IVCONT .Q8H [facility] Last Admin: 11/02/24 06:29 Dose: 125 mls/hr Documented By: ZAINAB Potassium Chloride (Potassium Chloride/H20) 10 meq in 100 mls @ 100 mls/hr IV Q1H [facility] Stop: 11/02/24 15:59 Magnesium Hydroxide (Milk Of Magnesia 30 Ml Oral.Susp) 30 ml PO DAILY PRN PRN Reason: Constipation Melatonin (Melatonin 3 Mg Tablet) 6 mg PO BEDTIME PRN PRN Reason: Insomnia Sodium Chloride (0.9 % Sodium Chloride Flush 3 Ml Syringe) 3 ml IVFLUSH QSHIFT [facility] Last Admin: 11/02/24 09:48 Dose: Not Given Documented By: DILLON Non-Admin Reason: IV Running Labs 11/02/24 05:57 11/02/24 05:57 Labs: Laboratory Results - last 24 hr 11/02/24 05:57 MCV 80.3 MCH 27.9 MCHC 34.8 RDW 13.4 Plt Count 222 MPV 9.3 L Absolute Nucleated RBC 0.000 Nucleated RBC % (auto) 0.0 Anion Gap 15 Estim Creat Clear Calc 93.1 Estimated GFR > 60 Random Glucose 88 Calcium 9.6 Microbiology Microbiology Results: Microbiology 11/01/24 01:08 Blood Culture - Preliminary Blood - Venous No growth after 24 hours. 11/01/24 01:07 Blood Culture - Preliminary Blood - Venous No growth after 24 hours. Assessment and Plan (1) Hyponatremia: Status: Acute (2) Intractable diarrhea: Status: Acute (3) Enterocolitis: Status: Acute (4) Hypokalemia: Status: Acute (5) Salmonella gastroenteritis: Status: Acute Plan Pt is a 59-year-old female with no significant PMH not on home meds who presents to the ED with?intractable abdominal cramping and nonbloody diarrhea x4 days. Pt is admitted to the hospital for treatment and further evaluation of intractable abdominal cramping and diarrhea in the setting of entero colitis. salmonella Enterocolitis Intractable diarrhea and abd cramping w/po intake x4 days; no N/V CT showing long segment wall thickening of large and small bowel consistent with enterocolitis No sepsis or lactic acidosis C diff negative, GI panel +ve for salmonella was initially treated with zosyn and flagyl, switched to ceftriaxone yesterday dx2 of Abx seen by GI no indication for scope, since pt still has diarrhea and abd cramping, will keep IV Abx for 1 more day, switch to levaquin 500 mg daily tomorrow if feeling better and per GI treat only for 3-5 days based on sx cont with IVF for now replete electrolytes advance diet as tolerated Hypokalemia: Po and IV K given this am Hyponatremia resolved Initial sodium 129 In the setting of above Has received IVF Adrenal mass CT a/p showing 4.5 cm adrenal gland mass CT abdomen with adrenal protocol shows partially calcified lipid rich adenoma will fu with endo for further management Full Code DVT Prophylaxis: Lovenox Pt will require a hospitalization of at least two nights for treatment of?intractable abdominal cramping and diarrhea in the setting of enterocolitis. Given that pt is unable to tolerate p.o. intake and symptoms have been ongoing for the past 4 days, pt will require hospital level care for administration of IVF, empiric IV antibiotics, specialist consultation, additional workup. OMN: IV Abx, IVF, poor po intake Quality Stroke Does the patient have a stroke diagnosis?: No VTE Prior VTE?: No VTE Risk Level:: Medical - moderate - high VTE Device Contraindication: Treatment Not Indicated VTE Drug Contraindication: N/A - Med Ordered Quality Stroke Does the patient have a stroke diagnosis?: No VTE Prior VTE?: No VTE Risk Level:: Medical - moderate - high VTE Device Contraindication: Treatment Not Indicated VTE Drug Contraindication: N/A - Med Ordered
[2024-11-02] MEDS: Potassium Chloride/H20 10 MEQ/100 ML PIGGYBACK 100 MEQ IV ×4 (12:18→16:03)
[2024-11-02 12:35] LABS: Magnesium 2.1 mg/dL (1.6-2.6)
[2024-11-02] MEDS: 0.9 % Sodium Chloride Flush 3 ML SYRINGE IVFLUSH (14:33)
[2024-11-02 15:25] VITALS: BP 113/67; PULSE 83; RESP 16; TEMP 37; O2SAT 97
[2024-11-02 19:51] VITALS: BP 117/70; PULSE 82; RESP 18; TEMP 37.5; O2SAT 96
--- NOTE | 2024-11-02 23:17 | PM.GIPN ---
Subjective Subjective Date of Service: 11/02/24 Interval History: Feeling a little better, but still with abdominal cramps and diarrhea with po intake. Denies bleeding. Afebrile. Critical Care Time (minutes): 0 Physical Exam Vital Signs: Vital Signs: Last Vital Signs Temp 99.5 F 11/02/24 19:51 Pulse 82 11/02/24 19:51 Resp 18 11/02/24 19:51 BP 117/70 11/02/24 19:51 Pulse Ox 96 11/02/24 19:51 O2 Del Method Room Air 11/02/24 19:51 BMI result Body Mass Index 29.2 Const: General: cooperative, healthy appearing, comfortable, no acute distress, well developed, alert and awake : Other: Abd-+BS, soft NT--improved from yesterday Objective Data Labs 11/02/24 05:57 11/02/24 05:57 Labs: Laboratory Results - last 24 hr 11/02/24 05:57 WBC 9.1 RBC 4.87 Hgb 13.6 Hct 39.1 MCV 80.3 MCH 27.9 MCHC 34.8 RDW 13.4 Plt Count 222 MPV 9.3 L Absolute Nucleated RBC 0.000 Nucleated RBC % (auto) 0.0 Sodium 135 Potassium 3.0 L Chloride 94 L Carbon Dioxide 29 Anion Gap 15 BUN 10 Creatinine 0.67 Estim Creat Clear Calc 93.1 Estimated GFR > 60 Random Glucose 88 Calcium 9.6 Magnesium 2.1 Microbiology Microbiology Results: Microbiology 11/01/24 01:08 Blood - Venous Blood Culture - Preliminary No growth after 24 hours. 11/01/24 01:07 Blood - Venous Blood Culture - Preliminary No growth after 24 hours. Procedures Date of Service Date of Service: 11/02/24 Progress Note: A&P Assessment and plan (1) Salmonella gastroenteritis: Status: Acute Assessment and Plan: Imp: Clinically improved but remains symptomatic. Abdominal exam is improved as well and today's F/U CT reports no bowel wall thickening today as compared to yesterday's description. Rec: Continue supportive care, advance diet as tolerated to low fat and lactose-free, and observe off IV fluids for 24 hours before discharge. D/C IV antibiotics and use a short course of po antibiotics for 2 or 3 days. I advised her that she may have IBS-type symptoms for a while after this infectious colitis resolves. She should avoid antidiarrheal agents. She will need to F/U with [facility] for F/U stool specimens to check for clearance of the infection as well. D/W patient and her in detail. They are comfortable with this plan. Thanks Time Spent With Patient Time: Total time managing care of this patient today ____ minutes. Quality Stroke Does the patient have a stroke diagnosis?: No VTE Prior VTE?: No VTE Risk Level:: Medical - moderate - high VTE Device Contraindication: Treatment Not Indicated VTE Drug Contraindication: N/A - Med Ordered
[2024-11-03] MEDS: Lactated Ringers 1,000 ML 125 ML IVCONT (03:00)
[2024-11-03 03:45] VITALS: BP 103/64; PULSE 72; RESP 18; TEMP 37.1; O2SAT 95
[2024-11-03 07:01] LABS: Alanine Aminotransferase 31 U/L (0-31); Albumin Level 3.3 g/dL (3.5-5.0); Alkaline Phosphatase 66 U/L (39-117); Anion Gap 11 (12-20); Anion Gap 12 (12-20); Aspartate Amino Transferase 42 U/L (5-31); Blood Urea Nitrogen 6 mg/dL (9-16); Blood Urea Nitrogen 7 mg/dL (9-16); Calcium 8.4 mg/dL (8.4-10.2); Carbon Dioxide 29 mmol/L (22-29); Carbon Dioxide 30 mmol/L (22-29); Chloride 103 mmol/L (96-108); Creatinine Clr Calc Pharmacy 94.4; Creatinine Clr Calc Pharmacy 95.9; Estimated Glomerular Filt Rate > 60; Potassium 3.4 mmol/L (3.3-5.1); Sodium 141 mmol/L (135-145); Total Protein 5.8 g/dL (6.5-8.0)
[2024-11-03 07:20] VITALS: BP 100/61; PULSE 64; RESP 20; TEMP 37.1; O2SAT 97
--- NOTE | 2024-11-03 10:55 | MHC.CM.PN ---
Addendum entered by Lily Vang RN 11/04/24 15:10: Patient cleared for dc home self care via private transport. Original Note: Per MD rounds patient not medically cleared for dc, advancing diet. Anticipate home self care when medically cleared. CM will continue to follow.
[2024-11-03 15:00] VITALS: BP 117/65; PULSE 83; RESP 20; TEMP 36.5; O2SAT 96
[2024-11-03] MEDS: 0.9 % Sodium Chloride Flush 3 ML SYRINGE IVFLUSH ×2 (15:15→23:48)
--- NOTE | 2024-11-03 17:15 | HO.PM.IMPN ---
Subjective Subjective Date of Service: 11/03/24 Interval History: salmonella Enterocolitis Review of Systems has significant diarrahae , abd pain improving Physical Exam Exam: Exam: General: AOx3, no acute distress. Resting comfortably in bed Resp: CTA bilaterally CVS: S1, S2, RRR GI: +BS, no distention, lower abd tenderness Skin: Warm, dry Neuro: Cranial nerves II-XII grossly intact bilaterally. Motor grossly intact bilaterally Extremities: No edema Psych: Appropriate affect Vital Signs: Vital Signs: Last Vital Signs Temp 97.7 F 11/03/24 15:00 Pulse 83 11/03/24 15:00 Resp 20 11/03/24 15:00 BP 117/65 11/03/24 15:00 Pulse Ox 96 11/03/24 15:00 O2 Del Method Room Air 11/03/24 15:00 BMI result Body Mass Index 29.2 Objective Data Active Medications Acetaminophen (Acetaminophen 325 Mg Tablet) 650 mg PO Q6H PRN PRN Reason: Pain, Mild 1-3,fever,headache Calcium Carbonate (Calcium Carbonate 750 Mg Tab.Chew) 750 mg PO Q4H PRN PRN Reason: Heartburn Enoxaparin Sodium (Enoxaparin Sodium 40 Mg/0.4 Ml Syringe) 40 mg SUBCUT Q24H [facility] Last Admin: 11/03/24 10:30 Dose: 40 mg Documented By: COLEMAN Levofloxacin (Levofloxacin 500 Mg Tablet) 500 mg PO Q24H [facility] Last Admin: 11/03/24 13:05 Dose: 500 mg Documented By: COLEMAN Magnesium Hydroxide (Milk Of Magnesia 30 Ml Oral.Susp) 30 ml PO DAILY PRN PRN Reason: Constipation Melatonin (Melatonin 3 Mg Tablet) 6 mg PO BEDTIME PRN PRN Reason: Insomnia Sodium Chloride (0.9 % Sodium Chloride Flush 3 Ml Syringe) 3 ml IVFLUSH QSHIFT [facility] Last Admin: 11/03/24 15:15 Dose: 3 ml Documented By: COLEMAN Labs 11/02/24 05:57 11/03/24 06:01 Labs: Laboratory Results - last 24 hr 11/03/24 11/03/24 11/03/24 06:01 06:01 06:01 Anion Gap 11 L 12 Estim Creat Clear Calc 95.9 94.4 Estimated GFR > 60 Random Glucose Calcium Total Bilirubin AST ALT Alkaline Phosphatase Total Protein Albumin 11/03/24 11/03/24 11/03/24 06:01 06:01 06:01 Anion Gap Estim Creat Clear Calc Estimated GFR > 60 Random Glucose 93 92 Calcium 8.4 D 8.4 Total Bilirubin 0.2 AST 42 H ALT 31 Alkaline Phosphatase 66 Total Protein 5.8 L Albumin 3.3 L Microbiology Microbiology Results: Microbiology 11/01/24 01:08 Blood Culture - Preliminary Blood - Venous No growth after 48 hours. 11/01/24 01:07 Blood Culture - Preliminary Blood - Venous No growth after 48 hours. Assessment and Plan (1) Hyponatremia: Status: Acute (2) Intractable diarrhea: Status: Acute (3) Enterocolitis: Status: Acute (4) Hypokalemia: Status: Acute (5) Salmonella gastroenteritis: Status: Acute Plan Pt is a 59-year-old female with no significant PMH not on home meds who presents to the ED with?intractable abdominal cramping and nonbloody diarrhea x4 days. Pt is admitted to the hospital for treatment and further evaluation of intractable abdominal cramping and diarrhea in the setting of entero colitis. salmonella Enterocolitis Intractable diarrhea and abd cramping w/po intake x4 days; no N/V CT showing long segment wall thickening of large and small bowel consistent with enterocolitis No sepsis or lactic acidosis C diff negative, GI panel +ve for salmonella continue zosyn and flagyl,switched to ceftriaxone yesterday seen by GI:no indication for scope, since pt still has diarrhea and abd cramping, will keep IV Abx for 1 more day, switch to levaquin 500 mg daily tomorrow if feeling better and per GI treat only for 3-5 days based on sx advance diet as tolerated Hypokalemia: Po and IV K given this am Hyponatremia resolved Initial sodium 129 In the setting of above Has received IVF Adrenal mass CT a/p showing 4.5 cm adrenal gland mass CT abdomen with adrenal protocol shows partially calcified lipid rich adenoma will fu with endo for further management Full Code DVT Prophylaxis: Lovenox ongoing need for hospitalization of at least two nights for treatment of?intractable abdominal cramping and diarrhea in the setting of enterocolitis. Given that pt is unable to tolerate p.o. intake and symptoms have been ongoing for the past 4 days, pt will require hospital level care for administration of IVF, empiric IV antibiotics, specialist consultation, additional workup. OMN: IV Abx, IVF, poor po intake Quality Stroke Does the patient have a stroke diagnosis?: No VTE Prior VTE?: No VTE Risk Level:: Medical - moderate - high VTE Device Contraindication: Treatment Not Indicated VTE Drug Contraindication: N/A - Med Ordered
[2024-11-03 19:40] VITALS: BP 111/66; PULSE 73; RESP 18; TEMP 36.5; O2SAT 93
[2024-11-04 04:00] VITALS: BP 108/64; PULSE 74; RESP 18; TEMP 36.1; O2SAT 96
[2024-11-04 07:36] VITALS: BP 116/69; PULSE 70; RESP 16; TEMP 36.2; O2SAT 97
[2024-11-04 09:39] LABS: Anion Gap 13 (12-20); Blood Urea Nitrogen 9 mg/dL (9-16); Calcium 9.0 mg/dL (8.4-10.2); Carbon Dioxide 30 mmol/L (22-29); Chloride 102 mmol/L (96-108); Creatinine Clr Calc Pharmacy 94.4; Estimated Glomerular Filt Rate > 60; Potassium 3.6 mmol/L (3.3-5.1); Sodium 141 mmol/L (135-145)
[2024-11-04] MEDS: 0.9 % Sodium Chloride Flush 3 ML SYRINGE IVFLUSH (09:44)
[2024-11-04 10:28] LABS: Alanine Aminotransferase 89 U/L (0-31); Albumin Level 3.9 g/dL (3.5-5.0); Alkaline Phosphatase 100 U/L (39-117); Aspartate Amino Transferase 98 U/L (5-31); Total Protein 7.0 g/dL (6.5-8.0)
[2024-11-04 12:05] LABS: HBS Num1 41.87 mIU/mL (0-7.99); HBc Num1 0.09 S/CO (0.00-0.79); HBsAGNum1 0.43 S/CO (0.00-0.99); Hepatitis A Antibody IgM 0.13 Index (0-0.79); Hepatitis B Surface Antigen Negative (Negative); ~HepC Num1 0.11 S/CO (0.00-0.79); ~Hepatitis A Antibody IgM Nonreactive (Nonreactive); ~Hepatitis B Surface Antibody REACTIVE (Nonreactive); ~Hepatitis C Antibody Nonreactive (Nonreactive)
--- NOTE | 2024-11-04 15:00 | PM.DS ---
DS: Providers Provider Date of Service: 11/04/24 Date of admission: 11/01/24 06:46 Date of discharge: 11/04/24 Primary care physician: Unknown Physician Consults: 11/01/24 07:49 Consult to Gastroenterology Routine Consulting Provider: [facility] Arnal[facility] Elizondo Reason for consultation: Enterocolitis Has provider been notified: No 11/04/24 10:39 Consult to Infectious Diseases Routine Consulting Provider: [facility] Reason for consultation: salmonella gastroenteritis, elevated lft Has provider been notified: No Attending physician on discharge: Varinder Chiu Discharging clinician: Varinder Chiu DS: Diagnosis Discharge Diagnosis (1) Hyponatremia: Status: Acute (2) Intractable diarrhea: Status: Acute (3) Enterocolitis: Status: Acute (4) Hypokalemia: Status: Acute (5) Salmonella gastroenteritis: Status: Acute DS: Summary Hospital Course Hospital Course: HPI:59-year-old female with no significant PMH not on home meds who presents to the ED with?intractable abdominal cramping and nonbloody diarrhea x4 days. Pt reports symptoms began 5 days ago on Friday when she felt weak and fatigued. The following day she developed abdominal cramping and nonbloody diarrhea with many episodes per day. Since then has been unable to tolerate food or drink: Every time she has p.o. intake will subsequently developed cramping and diarrhea shortly thereafter. Diarrhea lately has been green colored. Had fever and chills measured at home as high as 103 degrees. Denies significant recent travel, suspicious food, or sick contacts. Reports mild lower abdominal tenderness which is tolerable; however, cramping after intake is severe. No nausea or vomiting. Denies chest pain or pressure. SOB or difficulty breathing. In the ED pt's vitals significant for tachycardia of 101, otherwise stable. Labs were significant for sodium 129, otherwise grossly unremarkable and around baseline for pt. No leukocytosis. Stable H&H. Creatinine slightly bumped up at 0.82. Lactic acid WNL. AST 32 and ALT 37. C diff negative. UA negative. CT of abdomen and pelvis found entero colitis, as well as 4.5 cm right adrenal gland mass. Pt was treated in the ED with IVF, acetaminophen, Zosyn, and metronidazole. Pt is admitted to the hospital for treatment and further evaluation of intractable abdominal cramping and diarrhea in the setting of entero colitis. Hospital course: Patient was admitted for intractable abdominal cramping, nonbloody diarrhea-admitted for enterocolitis, further workup with GI panel showed Salmonella, C diff negative- Salmonella enterocolitis: Received 3 days of antibiotics, improved. Patient tolerating diet symptoms improved. 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 Hypokalemia repleted and resolved. Mild elevated LFTs: CT abdomen-shows some hepatomegaly, hepatitis-A,B,C screen negative, discussed with GI further workup outpatient monitor LFT outpatient. Adrenal mass:CT a/p showing 4.5 cm adrenal gland mass CT abdomen with adrenal protocol shows partially calcified lipid rich adenoma will fu with endo for further management Plan: ct abd incidenatl finding partially calcified lipid rich adenoma -follow up with outpatient endocrinology for further management. Follow-up with PCP and consider outpatient GI follow-up. Monitor CMP outpatient in 1-2 weeks. 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 Id also recomneded:Would return to work when no diarrhea,if still diarrhea recheck stool PCR,May need culture to speciate (state may need to help determine any outbreak source) -consider outpatient cultures . Above management discussed with the patient in detail length she understand and in agreement with the above plan, time spent 45 minutes and 50% time spent on counseling. All questions answered. Time Attestation Total time managing care of this patient today: 50 mintues. Discharge Coordination Time (in mins): 50 minute Quality: Safe Use of Opioids Does Pt have an Active Cancer Diagnosis on the Problem List?: No Quality: Stroke Does the patient have a stroke diagnosis?: No Physical Exam Exam: Exam: General: AOx3, no acute distress. Resting comfortably in bed Resp: CTA bilaterally CVS: S1, S2, RRR GI: +BS, no distention, lower abd tenderness Skin: Warm, dry Neuro: Cranial nerves II-XII grossly intact bilaterally. Motor grossly intact bilaterally Extremities: No edema Psych: Appropriate affect Vital Signs: Vital Signs: Last Vital Signs Temp 97.1 F 11/04/24 07:36 Pulse 70 11/04/24 07:36 Resp 16 11/04/24 07:36 BP 116/69 11/04/24 07:36 Pulse Ox 97 11/04/24 07:36 O2 Del Method Room Air 11/04/24 07:36 BMI result Body Mass Index 29.2 DS: Data Data Completed and Pending Labs on day of discharge: Laboratory Results - last 24 hr 11/04/24 11/04/24 08:55 10:59 Sodium 141 Potassium 3.6 Chloride 102 Carbon Dioxide 30 H Anion Gap 13 BUN 9 Creatinine 0.66 Estim Creat Clear Calc 94.4 Estimated GFR > 60 Random Glucose 106 Calcium 9.0 D Total Bilirubin 0.3 Direct Bilirubin 0.1 AST 98 H ALT 89 H Alkaline Phosphatase 100 Total Protein 7.0 Albumin 3.9 Hepatitis A IgM Ab Nonreactive Hep Bs Antigen Negative Hep Bs Antibody REACTIVE Hep B Core Total Ab Nonreactive Hepatitis C Ab (EIA) Nonreactive Preliminary micro results at discharge 11/01/24 01:08 Blood Culture - Preliminary Blood - Venous No growth after 48 hours. 11/01/24 01:07 Blood Culture - Preliminary Blood - Venous No growth after 48 hours. Imaging Chest x-ray: Radiologist's impression: ITS Impressions Abdomen CT 11/02/24 09:21 IMPRESSION: 44 x 26 x 42 mm partially calcified lipid rich adenoma, right adrenal gland. Nodular lesions between 3 to 5 cm are occasionally malignant. Fleischner guidelines were followed. Discharge Plan Discharge Anticipated Discharge Date/Time: 11/04/24 14:53 Patient Disposition: Home, Self-Care Discharge Diagnosis: Salmonella enterocolitis, elevated LFT, adrenal mass Referrals: Physician,Unknown J [Primary Care Provider, Medical] - 1 Week Discharge Medications: No Action No Known Home Meds Discharge Orders: Discharge Order (Routine); Ordered 11/04/24 Ordered By: Varinder Chiu Diet: Advance to usual diet Activity on Discharge: As tolerated Stand Alone Forms: Patient Portal Discharge page, Work/School Release Print Language: Czech Care Plan Goals: Salmonella enterocolitis: Received 3 days of antibiotics, improved. Patient tolerating diet symptoms improved. Hypokalemia repleted and resolved. Mild elevated LFTs: CT abdomen-shows some hepatomegaly, hepatitis-C screen negative, discussed with GI further workup outpatient monitor LFT outpatient. Follow-up with PCP and consider outpatient GI follow-up. Monitor CMP outpatient in 1-2 weeks. 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 Adrenal mass:CT a/p showing 4.5 cm adrenal gland mass-CT abdomen with adrenal protocol shows partially calcified lipid rich adenoma . will fu with endo for further management Health Concerns: As above. Plan of Treatment: As above. Assessment: As above. Discharge Date/Time: 11/04/24 16:43
--- NOTE | 2024-11-05 13:47 | P.CNID_ITS ---
History of Present Illness Data of Consult Service Date: 11/04/24 Requesting physician: Varinder Chiu Primary Care Provider: Unknown Physician HPI Reason for consult: diarrhea,salmonella She presents with weakness and loose stools for a week. She has no chickens or reptiles and didnt eat anything unusual. 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 Meds Allergies Allergy/AdvReac Type Severity Reaction Status Date / Time No Known Allergies Allergy Unverified 10/31/24 23:36 Home Medications ?Medication ?Instructions ?Recorded ?Confirmed ?Last Taken ?Type No Known Home Meds 07/31/22 11/01/24 Un known History Physical Exam 2 Vital Signs: Vital Signs: Last Vital Signs Temp 97.1 F 11/04/24 07:36 Pulse 70 11/04/24 07:36 Resp 16 11/04/24 07:36 BP 116/69 11/04/24 07:36 Pulse Ox 97 11/04/24 07:36 O2 Del Method Room Air 11/04/24 07:36 BMI result Body Mass Index 29.2 Const: General: cooperative HEENT: Head: Yes normal to inspection Face and sinus: Yes normal facial exam Mouth: Normal oral and palatal mucosa present Teeth and gingiva: d entition normal Eyes: General: appearance normal, both eyes and all related structures P upils: Equal, round and reactive pupils present Resp: Effort & Inspection: normal respiratory effort Cardio: Rate: regular rate Rhythm: regular rhythm GI: Palpation (GI): Soft to palpation and nontender : General: Yes no CVA tenderness Back/Spine/Pelvis: Back: no CVA tenderness Skin: General skin exam: no rashes or lesions noted Neuro: General: moves all extremities Cranial nerves: Yes Equal, round and reactive pupils present Extrem: General: Yes normal to inspection Psych: Appearance: grossly normal Results Labs 11/02/24 05:57 11/04/24 08:55 Microbiology Microbiology Results: Microbiology 11/01/24 01:08 Blood - Venous Blood Culture - Preliminary No growth after 48 hours. 11/01/24 01:07 Blood - Venous Blood Culture - Preliminary No growth after 48 hours. 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 Would return to work when no diarrhea,if still diarrhea recheck stool PCR May need culture to speciate (state may need to help determine any outbreak source).
== END 2024-11-04 16:43 | disposition home or self-care (01) | DRG 248 ==
LOC: HO.ED 11-01 07:51 → HO.EDOVER 11-01 08:32 → HO.S3 11-01 08:37
PROVIDERS: Hospitalist; Student in an Organized Health Care Education/Training Program; Admitting Provider Internal Medicine; Emergency Provider Emergency Medicine; Visit Provider Internal Medicine
DX: A02.0 Salmonella enteritis (principal); E87.1 Hypo-osmolality and hyponatremia; E87.6 Hypokalemia; D35.01 Benign neoplasm of right adrenal gland; Z87.891 Personal history of nicotine dependence
CPT/HCPCS: 36415; 74170; 74177; 80048; 80053; 80076; 81001; 83605; 83735; 85007; 85027; 86704; 86706; 86709; 86803; 87040; 87340; 87493; 87507; 99285; J0131; J0696; J1650; J1836; J2543; J3480; J7120; Q9967

== ENCOUNTER → 2024-11-01 03:02 | Outpatient (BNV) | payer OTHER, SELFPAY | PROVIDERS: Emergency Provider Emergency Medicine; Visit Provider Radiology Vascular & Interventional Radiology | DX: K52.89 Other specified noninfective gastroenteritis and colitis (principal) | CPT/HCPCS: 74177 ==

== ENCOUNTER 2024-11-01 06:46 | Outpatient (BNV) | payer OTHER, SELFPAY | END 2024-11-02 09:21 | PROVIDERS: Admitting Provider Internal Medicine; Emergency Provider Emergency Medicine; Visit Provider Radiology Diagnostic Radiology | DX: D35.01 Benign neoplasm of right adrenal gland (principal) | CPT/HCPCS: 74170 ==

== ENCOUNTER → 2024-11-01 06:46 | Outpatient (BNV) | payer OTHER, SELFPAY | PROVIDERS: Admitting Provider Internal Medicine; Emergency Provider Emergency Medicine; Visit Provider Hospitalist | DX: E87.1 Hypo-osmolality and hyponatremia (principal); K52.9 Noninfective gastroenteritis and colitis, unspecified; E87.6 Hypokalemia; A02.0 Salmonella enteritis | CPT/HCPCS: 99223; 99232; 99239 ==

== ENCOUNTER → 2024-11-01 06:46 | Outpatient (BNV) | payer OTHER, SELFPAY | PROVIDERS: Admitting Provider Internal Medicine; Emergency Provider Emergency Medicine; Visit Provider Internal Medicine | DX: K52.9 Noninfective gastroenteritis and colitis, unspecified (principal) | CPT/HCPCS: 99222 ==

== ENCOUNTER 2024-11-11 10:51 | Outpatient (AMB) | payer OTHER, SELFPAY ==
--- NOTE | 2024-11-11 10:52 | MHC.PC.OV ---
Vital Signs 11/11/24 10:57 Height 5 ft 5 in Weight 170 lb BMI 28.3 BP 108/72 Blood Pressure Location Lt brachial Position Sitting Respiration 16 Pulse 92 Pulse Source Pulse Oximeter Temp 98.7 F Temp Source Temporal Artery Scan Pulse Oximetry (%) 98 Oxygen Delivery Method Room Air Intake Visit Reasons: [facility] [place] Clinical Educator Required: No Allergies No Known Allergies Allergy (Verified 11/11/24 10:52) Tobacco use date assessed: 11/11/24 HPI HPI Comments History of Present Illness Details The patient is a 59-year-old female presenting for follow-up care after hospitalization for Salmonella enterocolitis. Her symptoms began after consuming a meal, which included raw and cooked foods, at a local restaurant. She developed fatigue on the following day and started experiencing shivering, which she initially attributed to being cold. By the third day, her symptoms progressed to a high fever of approximately 108?F and severe diarrhea occurring every hour to an hour and a half, persisting for four days without food or drink intake, leading to eventual hospitalization. During her hospital stay, she was diagnosed with Salmonella enterocolitis and treated with antibiotics. The patient expressed concerns about her body's ability to combat the infection, given she had never been seriously ill before. The patient reports fear around eating, leading to intake of only certain foods like home-cooked meals and peeled apples, avoiding raw vegetables and store-prepared ground meat. Additionally, the patient had a computed tomography (CT) scan during hospitalization, revealing a calcified lipid-rich adenoma on the right adrenal gland, and aorta calcification. She expressed worries about potential other plaques due to a family history of cardiovascular disease. The patient reports feeling weak and tired, particularly in her legs after prolonged inactivity due to hospitalization, but is gradually increasing activity levels. Other symptoms include painful bowel movements, which she suspects are due to hemorrhoids. 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 - Varicose veins - Adrenal adenoma (incidental finding in adrenal gland) - Calcified plaque in the infrarenal distal abdominal aorta Surgical History: - No prior surgeries Medications: - No medications mentioned during the visit Family History: - Mother: Heart attack - Father: Atherosclerosis, multiple myeloma - Brother: Multiple heart attacks Diagnostic Results: - CT scan: Calcified plaque in the infrarenal distal abdominal aorta, calcified lipid-rich adenoma on right adrenal gland - Elevated liver enzymes (suspected due to infection) Social: - Employment: Nurse at [employer] - Smoking: Quit 30 years ago, with a 10-year history prior - Alcohol: Minimal use, family encourages social drinking - Physical activity: Limited due to recent illness, gradually increasing - Nutrition: Fearful of eating certain foods post-hospitalization, currently eats home-cooked meals and peeled apples [facility] Medical History (Updated 11/11/24 @ 11:53 by Jose Spangler MD) Hemorrhoid Breast cancer screening Adrenal gland anomaly Annual physical exam Social History Household Members: Spouse Housing: House Do you presently have visiting nurse or other home services: No Patient Tobacco Use Status: Former Tobacco user Tobacco use type: Cigarette e-Cigarette/Vaping Use: Never Used Second Hand Smoke Exposure: No service: No Current occupational status: employed 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 1. Little interest or pleasure in doing things: not at all 2. Feeling down, depressed, or hopeless: not at all 3. Trouble falling or staying asleep, or sleeping too much: not at all 4. Feeling tired or having little energy: not at all 5. Poor appetite or overeating: not at all 6. Feeling bad about yourself - or that you are a failure or have let yourself or your family down: not at all 7. Trouble concentrating on things, such as reading the newspaper or watching television: not at all 8. Moving or speaking so slowly that other people could have noticed. Or the opposite - being so fidgety or restless that you have been moving around a lot more than usual: not at all 9. Thoughts that you would be better off or of hurting yourself in some way: not at all Total score: 0 Depression Screening Interpretation: Negative Depression Screening Done: Yes 62161 - PHQ-9 Billing: Yes Source: Developed by Drs. Adriel Corona, Yolanda Arboleda, Brice Ibrahim and colleagues, with an educational bety from [employer] Thrive Questionnaire Date Thrive assessed: 11/11/24 I am a: Patient What is your living situation today?: I have a steady place to live Within the past 12 months, did the food you bought not last and you didn't have the money to get more?: Never true Within the past 12 months, did you worry whether your food would run out before you got money to buy more?: Never true Do you have trouble paying for medicines?: No Do you have trouble getting transportation to medical appointments?: No Do you have trouble paying your heating and electricity bill?: No Do you have trouble taking care of your child, family member or friend?: No Do you have trouble with day-to-day activities such as bathing, preparing meals, shopping, managing finances, etc.?: No Are you currently unemployed and looking for a job?: No Are you interested in more education?: No THRIVE Score: 0 AUDIT C Alcohol Use Questionnaire (AUDIT-C) 1. How often do you have a drink containing alcohol?: Monthly or less 2. How many drinks containing alcohol do you have on a typical day when you are drinking?: 1 or 2 Total Score: 1 YOSELIN-7 AMB Questionnaire YOSELIN-7 Date YOSELIN - 7 assessed: 11/11/24 Feeling nervous, anxious, or on edge: 0 = Not at all Not being able to stop or control worryin = Not at all Worrying too much about different things: 0 = Not at all Trouble relaxin = Not at all Being so restless that it is hard to sit still: 0 = Not at all Becoming easily annoyed or irritable: 0 = Not at all Feeling afraid as if something awful might happen: 0 = Not at all Total YOSELIN-7 score (0-4 normal; 5-9 mild; 10-14 moderate; 15-21 severe): 0 Source: Developed by Drs. Adriel Corona, Yolanda Arboleda, Brice Ibrahim and colleagues, with an educational bety from [employer] YOSELIN-7 Assessment Billing YOSELIN-7 Assessment Tool: YOSELIN-7 Assessment 39327 Review of Systems Const Details: - Constitutional: Reports weakness and generalized fatigue - Gastrointestinal: Reports history of diarrhea, fullness after meals, and painful bowel movements - Cardiovascular: Reports a family history of heart disease, expressed anxiety about personal cardiovascular health - Musculoskeletal: Denies musculoskeletal pain, except for mild osteoarthritis symptoms in the hands - Neurological: Denies dizziness or lightheadedness except when standing suddenly, denies headaches or visual changes - Ears, Nose, Throat: Reports a popping sound in right ear but denies significant hearing changes or vertigo All systems reviewed & are unremarkable except as reviewed in HPI and above Physical exam (Primary Care) Vital Signs: Last Vital Signs Temp 98.7 F 11/11/24 10:57 Pulse 92 11/11/24 10:57 Resp 16 11/11/24 10:57 BP 108/72 11/11/24 10:57 Pulse Ox 98 11/11/24 10:57 Oxygen Delivery Method Room Air 11/11/24 10:57 BMI result Body Mass Index 28.3 Tobacco/Smoking Status: Tobacco use Status Tobacco use date assessed 11/11/24 11/11/24 10:53 Patient Tobacco Use Status Former Tobacco user 11/11/24 11:01 Tobacco use type Cigarette 11/11/24 11:01 e-Cigarette/Vaping Use Never Used 11/11/24 10:53 Depression Screening Interpretation: Negative Thrive Assessment: Date of Thrive Assessment Date Thrive assessed 11/02/24 11/11/24 10:53 Const Other: General: Alert and oriented, Well nourished, No acute distress, Reports feeling weak. Eye: Pupils are equal, round and reactive to light, Intact accommodation, Extraocular movements are intact, Normal conjunctiva, Vision unchanged. HENT: Normocephalic, Atraumatic, Tympanic membranes are clear, Normal hearing, Oral mucosa is moist, No pharyngeal erythema, Ear canals patent, Reports popping sound in right ear. Respiratory: Lungs CTA bilaterally, No wheeze, Respirations are non-labored. Cardiovascular: Regular rate, Regular rhythm, S1 auscultated, S2 auscultated, No murmur, Good pulses equal in all extremities, Normal peripheral perfusion, No edema, Blood pressure is on the softer side. Gastrointestinal: Soft, Non-tender, Non-distended, Normal bowel sounds, No organomegaly, Reports fullness after eating, History of diarrhea, Reports painful bowel movements, Suspected hemorrhoids. Musculoskeletal: Normal range of motion, Normal strength, No tenderness, No swelling, No deformity, Normal gait, Reports weakness in legs. Integumentary: Warm, Dry, [place], Intact. Neurologic: Alert, Oriented, Normal sensory, Normal motor function, No focal defects, Cranial Nerves II-XII are grossly intact, Normal deep tendon reflexes. Psychiatric: Cooperative, Appropriate mood & affect, Normal judgment, Reports stress and fear related to recent illness, No depression or sadness. Coding Level of Care Code New Pt Level 4 (25738) New Pt Prev Care 40-64y(57544) Diagnoses Primary osteoarthritis of both hands M19.041; M19.042 Osteoarthritis type: primary Elevated liver enzymes R74.8 Annual physical exam Z00.00 Adrenal gland anomaly Q89.1 Enterocolitis K52.9 Hemorrhoids, unspecified hemorrhoid type K64.9 Hemorrhoid type: unspecified Additional Codes PHQ-9 - 04128 - PHQ-9 Billing: Yes ([id number]) YOSELIN-7 Assessment Billing - YOSELIN-7 Assessment Tool: YOSELNI-7 Assessment 25612 ([id number]) Time Spent (min) 50 Assessment & Plan Assessment & Plan (1) Osteoarthritis of hands, bilateral: Comment: Primarily affecting the DIP joints, notably of the right index & left small fingers With ~30 degrees radial deviation of the right index finger DIP joint Advised exercise, topical medications and PRN Tylenol Code(s): M19.041 - Primary osteoarthritis, right hand; M19.042 - Primary osteoarthritis, left hand Category: Medical Qualifiers: Osteoarthritis type: primary Qualified Code(s): M19.041 - Primary osteoarthritis, right hand; M19.042 - Primary osteoarthritis, left hand (2) Elevated liver enzymes: Comment: Elevated during reasons for hospitalization with a negative hepatitis panel. Was evaluated GI were recommended outpatient monitoring of LFTs. We will start monitoring LFTs every 3 months until the return to normal Code(s): R74.8 - Abnormal levels of other serum enzymes Category: Medical (3) Annual physical exam: Comment: Obtain baseline labs for patient - Mammogram obtained Code(s): Z00.00 - Encounter for general adult medical examination without abnormal findings Category: Medical (4) Adrenal gland anomaly: Comment: CT imaging during hospitalization demonstrated a adrenal mass and subsequently underwent adrenal protocol that demonstrated a lipid rich adenoma measuring 44 x 26.0 x 42 mm in size. We will refer patient to endocrinology for further evaluation per patient's request Code(s): Q89.1 - Congenital malformations of adrenal gland Category: Medical (5) Enterocolitis: Comment: Completed treatment for salmonella enterocolitis during hospitalization and continues to have concerns about eating a fair. 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 Code(s): K64.9 - Unspecified hemorrhoids Category: Medical Qualifiers: Hemorrhoid type: unspecified Qualified Code(s): K64.9 - Unspecified hemorrhoids Plan During our discussion, I reviewed the patient's recent hospitalization due to Salmonella enterocolitis, addressing her concerns about her body's reaction to the infection and reassurance about her recovery. We discussed the incidental adrenal adenoma discovered during imaging, with a plan to refer her to an financial compliance officer for further evaluation. I emphasized the importance of addressing hyperlipidemia and hypertension, given her family history of cardiovascular disease. We discussed her current fear around food consumption and the need to gradually return to a balanced diet. I recommended that she continue monitoring her hemorrhoids and umbilical hernia with symptomatic relief as needed. Screening procedures, including mammogram and Pap smear, are to be conducted, and she was advised on the importance of maintaining regular health checks in the context of her family health history. Orders: Orders Comprehensive Met. Panel Today Z00.00 - Encounter for general adult medical examination without abnormal findings Hemoglobin A1c Today Z00.00 - Encounter for general adult medical examination without abnormal findings Vitamin D 25-OH Total Today Z00.00 - Encounter for general adult medical examination without abnormal findings Complete Blood Count Auto Diff Today Z00.00 - Encounter for general adult medical examination without abnormal findings Lipid Panel Today Z00.00 - Encounter for general adult medical examination without abnormal findings TSH reflex Free T4 Today Z00.00 - Encounter for general adult medical examination without abnormal findings MM tomosynthesis screening BI Today Z12.39 - Encounter for other screening for malignant neoplasm of breast GI Panel Today R19.7 - Diarrhea, unspecified Referrals Endocrinology Referral Q89.1 - Congenital malformations of adrenal gland Patient Instructions: - Gradually reintroduce a balanced diet to strengthen your health and avoid any nutritional deficiencies. - Use [id number] hemorrhoid creams or stool softeners for any bowel movement discomfort. - Watch for signs of complications from your hernia, such as increased pain or changes in appearance, and seek urgent care if needed. - Schedule and complete your mammogram and Pap smear as soon as possible. - Follow up with the financial compliance officer for further evaluation of adrenal adenoma. - Maintain light physical activities and be gradual with increasing your daily exercise routine. - Take charge of your cardiovascular health by monitoring blood pressure and cholesterol levels, given your family history.
[2024-11-11 10:57] VITALS: BP 108/72; PULSE 92; RESP 16; TEMP 37.1; O2SAT 98; BMI 28.3
--- OUTSIDE RECORDS SUMMARY | 2024-11-11 14:46 | XMS_ITS | Patient Health Record ---
Author Organization [facility] Address [address] [place] [id number] Care Team Providers Care Box Inspector Name Role Phone Erwin Daniel MD Primary Care Provider Tello Huang Unavailable [phone] Allergies Allergen (clinical drug ingredient) Drug/Non Drug [...] Coverage End Date Blue Benefits [address] [address] [place] [address] [id number] Lisette Baker Self - patient is the insured Medical (General) History Surgical History Surgery Date(Month/Year)
== END 2024-11-11 11:36 | disposition home or self-care (01) ==
PROVIDERS: PCP Student in an Organized Health Care Education/Training Program; Visit Provider Student in an Organized Health Care Education/Training Program
DX: K52.9 Noninfective gastroenteritis and colitis, unspecified (principal); M19.041 Primary osteoarthritis, right hand; M19.042 Primary osteoarthritis, left hand; R74.8 Abnormal levels of other serum enzymes; Q89.1 Congenital malformations of adrenal gland; K64.9 Unspecified hemorrhoids

== ENCOUNTER → 2024-11-11 10:51 | Outpatient (BNVA) | payer OTHER, SELFPAY | PROVIDERS: Visit Provider Student in an Organized Health Care Education/Training Program | DX: Z09 Encounter for follow-up examination after completed treatment for conditions other than malignant neoplasm (principal); K52.9 Noninfective gastroenteritis and colitis, unspecified; M19.041 Primary osteoarthritis, right hand; M19.042 Primary osteoarthritis, left hand; R74.8 Abnormal levels of other serum enzymes; K64.9 Unspecified hemorrhoids; Q89.1 Congenital malformations of adrenal gland; Z13.31 Encounter for screening for depression; Z13.39 Encounter for screening examination for other mental health and behavioral disorders | CPT/HCPCS: 96127 ==

== ENCOUNTER 2024-11-11 11:53 | Outpatient (REF) | payer OTHER, SELFPAY ==
[2024-11-11 13:16] LABS: MANUAL DIFF FLAG NO
[2024-11-11 13:23] LABS: Hematocrit 38.3 % (37.0-47.0); Hemoglobin 12.2 g/dl (12.0-16.0); Imm Gran Abs Auto 0.06 X10*3/uL (0.00-0.03); Imm Gran Pct Auto 0.5 % (0.0-0.4); Lymphocytes Absolute Auto 2.8 X10*3/uL (1.2-4.9); Mean Corpuscular HGB Conc 31.9 g/dl (31.0-35.0); Mean Corpuscular Hemoglobin 27.5 pg (27.0-33.0); Mean Corpuscular Volume 86.5 fL (80.0-98.0); NRBC Abs Auto 0.000 X10*3/uL (0.0-0.012); NRBC Pct Auto 0.0 /100WBC (0.0-0.2); Platelet Count 355 X10*3/uL (160-400); Red Blood Count 4.43 X10*6/uL (4.20-5.50); White Blood Count 11.4 X10*3/uL (4.8-10.8)
[2024-11-11 13:29] LABS: Hemoglobin A1C 136.3158 umol/L; Total Hemoglobin (HGBA1C) 3269.1379 umol/L
[2024-11-11 13:58] LABS: Alanine Aminotransferase 61 U/L (0-31); Albumin Level 3.9 g/dL (3.5-5.0); Alkaline Phosphatase 82 U/L (39-117); Anion Gap 11 (12-20); Aspartate Amino Transferase 30 U/L (5-31); Blood Urea Nitrogen 15 mg/dL (9-16); Calcium 9.0 mg/dL (8.4-10.2); Carbon Dioxide 32 mmol/L (22-29); Chloride 101 mmol/L (96-108); Cholesterol 212 mg/dL (<200); Estimated Glomerular Filt Rate > 60; HDL Cholesterol 35 mg/dL (>40); Potassium 4.3 mmol/L (3.3-5.1); Sodium 140 mmol/L (135-145); Total Protein 6.9 g/dL (6.5-8.0); Triglycerides 197 mg/dL (<150)
== END 2024-11-11 11:54 | disposition home or self-care (01) ==
LOC: HO.10HDL 11:53
PROVIDERS: Visit Provider Student in an Organized Health Care Education/Training Program
DX: Z00.00 Encounter for general adult medical examination without abnormal findings (principal); Z13.6 Encounter for screening for cardiovascular disorders; Z13.1 Encounter for screening for diabetes mellitus
CPT/HCPCS: 36415; 80053; 80061; 82306; 83036; 84443; 85025

== ENCOUNTER 2024-11-12 06:40 | Outpatient (REF) | payer OTHER, SELFPAY ==
--- OUTSIDE RECORDS SUMMARY | 2024-11-12 10:55 | XMS_ITS | Patient Health Record ---
Author Organization [facility] Address [address] [place] [id number] Care Team Providers Care Nickel Plant Operator Name Role Phone Erwin Daniel MD Primary Care Provider Tello Huang Unavailable [phone] Allergies Allergen (clinical drug ingredient) Drug/Non Drug [...] Coverage End Date Blue Benefits [address] [address] [place] [address] [id number] Lisette Baker Self - patient is the insured Medical (General) History Surgical History Surgery Date(Month/Year)
== END 2024-11-12 06:41 | disposition home or self-care (01) ==
LOC: HO.LNP 06:40
PROVIDERS: Visit Provider Student in an Organized Health Care Education/Training Program
DX: Z13.89 Encounter for screening for other disorder (principal)
CPT/HCPCS: 87507

== ENCOUNTER 2024-11-13 07:30 | Outpatient (REF) | payer OTHER, SELFPAY ==
--- OUTSIDE RECORDS SUMMARY | 2024-11-13 09:40 | XMS_ITS | Patient Health Record ---
Author Organization [facility] Address [address] [place] [id number] Care Team Providers Care Environmental Maintenance Worker Name Role Phone Erwin Daniel MD Primary Care Provider Tello Huang Unavailable [phone] Allergies Allergen (clinical drug ingredient) Drug/Non Drug [...] Coverage End Date Blue Benefits [address] [address] [place] [address] [phone] [id number] Lisette Baker Self - patient is the insured Medical (General) History Surgical History Surgery Date(Month/Year)
[2024-11-13 11:33] LABS: E. coli EAEC Not Detected (Not Detect.); E. coli EPEC Not Detected (Not Detect.); E. coli ETEC Not Detected (Not Detect.); E. coli STEC Not Detected (Not Detect.); Shigella sp./EIEC Not Detected (Not Detect.)
== END 2024-11-13 07:31 | disposition home or self-care (01) ==
LOC: HO.LNP 07:30
PROVIDERS: Visit Provider Student in an Organized Health Care Education/Training Program
DX: R19.7 Diarrhea, unspecified (principal)
CPT/HCPCS: 87507

== ENCOUNTER 2024-11-17 07:53 | Outpatient (REF) | payer OTHER, SELFPAY ==
--- OUTSIDE RECORDS SUMMARY | 2024-11-17 07:56 | XMS_ITS | Patient Health Record ---
Author Organization [facility] Address [address] [place] [phone] Care Team Providers Care Door To Door Salesman Name Role Phone Erwin Daniel MD Primary Care Provider Tello Huang Unavailable [phone] Allergies Allergen (clinical drug ingredient) Drug/Non Drug [...] Coverage End Date Blue Benefits [address] [address] [place] [address] [id number] Lisette Baker Self - patient is the insured Medical (General) History Surgical History Surgery Date(Month/Year)
== END 2024-11-17 07:54 | disposition home or self-care (01) ==
LOC: HO.MAMMO 07:53
PROVIDERS: Visit Provider Student in an Organized Health Care Education/Training Program
DX: Z12.31 Encounter for screening mammogram for malignant neoplasm of breast (principal)
CPT/HCPCS: 77063; 77067

== ENCOUNTER → 2024-11-17 08:15 | Outpatient (BNV) | payer OTHER, SELFPAY | PROVIDERS: Visit Provider Internal Medicine | DX: Z12.31 Encounter for screening mammogram for malignant neoplasm of breast (principal) | CPT/HCPCS: 77063; 77067 ==

== ENCOUNTER 2024-11-19 09:28 | Emergency (ER) | payer OTHER, SELFPAY ==
--- NOTE | ~2024-11-19 | XR_ITS ---
EXAMINATION: XR CHEST CLINICAL INFORMATION: dyspnea on exertion COMPARISON: None available. TECHNIQUE: 2 views of the chest were obtained. FINDINGS: No significant abnormality is noted involving the heart, lungs, mediastinum, bony thorax or soft tissues. XR/XR chest 2V IMPRESSION: Unremarkable examination. Electronically signed by: Franklin Mena MD 11/19/2024 10:55 AM EDT
--- NOTE | ~2024-11-19 | CT_ITS ---
EXAMINATION: CT ANGIOGRAM CHEST CLINICAL INFORMATION: Dyspnea on exertion, recent salmonella enterocolitis COMPARISON: None available. TECHNIQUE: Multiple axial images were obtained through the chest after the administration of 65 mL of Omnipaque 350 intravenous contrast. Extensive vascular post-processing including two-dimensional and three-dimensional reformatted images were created and reviewed on an independent workstation. This CT examination was performed using dose optimization techniques as appropriate, variously including the following: *Automated exposure control *Adjustment of mA and/or kV according to patient size (this includes techniques or standardized protocols for targeted exams where dose is matched to indication/reason for exam; i.e. extremities or head) *Use of iterative reconstruction technique EXAMINATION: CT ANGIOGRAM CHEST CLINICAL INFORMATION: FINDINGS: QUALITY OF STUDY/CONTRAST BOLUS: Adequate PULMONARY ARTERIES: No filling defects are identified. THORACIC AORTA: There is no aneurysm or atherosclerotic ossifications. LUNGS AND PLEURA: Lungs are clear. There is no pleural effusion or pleural thickening. MEDIASTINUM: There is no adenopathy. CORONARY ARTERY CALCIFICATION: None CHEST WALL/AXILLA: No axillary or internal mammary lymphadenopathy. UPPER ABDOMEN: Again seen is a right adrenal mass with punctate calcification measuring 3.8 cm long axis and 11 Hounsfield units Extrahepatic bile duct diameter is 7 mm, previously 5-6 mm. BONES: Again noted is S-shaped scoliosis of the thoracic spine, with major curve convex left in the upper thorax. CT/CT angio chest PE protocol IMPRESSION: No pulmonary embolus is identified. Right adrenal gland mass has previously been worked up by CT on 11/02/2024. Borderline extrahepatic biliary ductal dilation. Consider right upper quadrant abdomen ultrasound if patient's symptoms are suggestive of a biliary abnormality. Fleischner guidelines were followed. Electronically signed by: Franklin Mena MD 11/19/2024 12:30 PM EDT
[2024-11-19 09:39] VITALS: BP 146/78; PULSE 77; RESP 18; TEMP 36.4; O2SAT 96; BMI 28.3
--- NOTE | 2024-11-19 09:42 | ECG_ITS ---
Test Reason : NILA Blood Pressure : */* mmHG Vent. Rate : 56 BPM Atrial Rate : 56 BPM P-R Int : 162 ms QRS Dur : 98 ms QT Int : 430 ms P-R-T Axes : 61 42 46 degrees QTcB Int : 414 ms Sinus bradycardia Otherwise normal ECG No previous ECGs available Referred By: Chris Smith Electronically Signed By: KENY RICARDO
--- NOTE | 2024-11-19 09:44 | ED.GENADULT ---
HPI - General Adult General Chief complaint: General Medical Stated complaint: SOB Time Seen by Provider: 11/19/24 09:44 Source: patient and other (Info obtained from expect note from Dr. Christopher Qureshi at the [facility]) Mode of arrival: ambulatory Limitations: no limitations History of Present Illness ED Provider: Dr. Logan Sheppard HPI narrative: 59-year-old female with no significant past medical history who was referred to the emergency department by the [facility] for evaluation of dyspnea on exertion. Patient was hospitalized at [facility] [place] from 11/01 to 06/2024 for 4 days of abdominal pain, severe diarrhea, poor oral intake. Patient was diagnosed with salmonella enteritis and elevated LFTs. She also had a low sodium and low potassium at that time. Patient was treated with IV fluids, electrolyte replacement and antibiotics with improvement of her symptoms. Patient also was noted to have an incidental 4.5 cm right adrenal mass which was noted to be a calcified lipid rich mass. Patient states that the 1st week after she was on of the hospitalist she was very fatigued and was sleeping for significant amounts of time. She states that her appetite is returned and she has been eating and drinking normally. She states that during her illness she lost 5-6 lb but he is not certain if she has gained his weight back. She states that this week she has noticed significant dyspnea on exertion. She states she has 14 stairs in her house and when she gets the top she is very dyspneic. She also states that walking from the hospital to the occupational health clinic she got very winded as well. She denied fever, chills, cough, chest pain, shortness of breath at rest, orthopnea. She denied nausea, vomiting or diarrhea. She has not noticed any dark stools or black stools. Prior to being ill she did not have any unexplained weight loss or change in her skin color. 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 Medical History (Updated 11/19/24 @ 12:56 by Logan Sheppard MD) Sepsis Hemorrhoid Breast cancer screening Adrenal gland anomaly Annual physical exam Social History Social History Household Members: Spouse Housing: House Do you presently have visiting nurse or other home services: No Patient Tobacco Use Status: Former Tobacco user Tobacco use type: Cigarette Smoked in Last 30 Days: No e-Cigarette/Vaping Use: Never Used Second Hand Smoke Exposure: No Use of substances other than those prescribed or required for medical reasons: No Advance Directives: No Advance Directives Information Provided: No service: No Current occupational status: employed 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 Exam: General: Awake, alert in no distress Head: Normocephalic, atraumatic EENT: PERRL, sclera and conjunctiva are normal, mouth with no erythema or exudates Neck: Supple, no adenopathy Lung: breath sounds symmetric, no wheezing, no rales and no rhonchi Chest: symmetric movement, nontender Heart: regular rate and rhythm, normal S1, S2 no murmurs or rubs Abdomen: soft, non-tender, nondistended, normal bowel sounds Back: no vertebral tenderness, no CVAT Extremities: no deformities, moves all extremities symmetrically, no edema Neuro: Awake, alert, oriented, normal speech, cranial nerves 2-12 intact, moves all extremities symmetrically Psych: Pleasant, cooperative Course Course Course Narrative: RME, this is a rapid medical exam performed by Sukhdev Smith please refer to primary provider for complete H&P- 59 old female with a history of salmonella gastroenteritis and recent admission for same presents for evaluation of dyspnea on exertion. She was discharged on 11/04/2024 and reports worsening dyspnea on exertion. Denies any chest pain or leg swelling. She was seen by [facility] and was sent to rule out a PE. Plan for labs, chest x-ray, D-dimer, ultrasound of the lower extremities. Medications Administered Discontinued Medications Generic Name Dose Route Start Last Admin Trade Name Glo PRN Reason Stop Dose Admin Iohexol 100 ml 11/19/24 12:05 11/19/24 12:05 Iohexol 350 Mg/Ml 100 Ml Infus..Btl IV 11/19/24 12:06 65 ml ONCE ONE Administration Medical Decision Making Medical Decision Making MDM Narrative: 59-year-old female with no significant past medical history who was referred to the emergency department by the [facility] for evaluation of dyspnea on exertion. Patient was hospitalized at [facility] [place] from 11/01 to 06/2024 for 4 days of abdominal pain, severe diarrhea, poor oral intake. Patient was diagnosed with salmonella enteritis and elevated LFTs. She also had a low sodium and low potassium at that time. Patient was treated with IV fluids, electrolyte replacement and antibiotics with improvement of her symptoms. Patient also was noted to have an incidental 4.5 cm right adrenal mass which was noted to be a calcified lipid rich mass. Patient states that the 1st week after she was on of the hospitalist she was very fatigued and was sleeping for significant amounts of time. She states that her appetite is returned and she has been eating and drinking normally. She states that during her illness she lost 5-6 lb but he is not certain if she has gained his weight back. She states that this week she has noticed significant dyspnea on exertion. She states she has 14 stairs in her house and when she gets the top she is very dyspneic. She also states that walking from the hospital to the occupational health clinic she got very winded as well. She denied fever, chills, cough, chest pain, shortness of breath at rest, orthopnea. She denied nausea, vomiting or diarrhea. She has not noticed any dark stools or black stools. Prior to being ill she did not have any unexplained weight loss or change in her skin color. Vital signs revealed slightly elevated respiratory rate at 18 otherwise unremarkable. Differential diagnosis: ?Includes but is not limited to myocardial infarction, myocardial ischemia, pulmonary embolism, anemia, electrolyte abnormalities, liver abnormalities, endocrine abnormalities, Course: My independent interpretation patient's laboratory evaluation is as follows: Normocytic anemia with an H&H of 11.8 and 35.9. Electrolytes were normal. LFTs were normal. Troponin was below detectable limits. Lactic acid was normal. Coags were normal. D-dimer below detectable limits. CT pulmonary angiogram revealed no large pulmonary embolism or lung abnormalities to explain the patient's dyspnea on exertion. Radiologist noted borderline extrahepatic biliary ductal dilation which I think is nonspecific, not related to the patient's presentation especially since her LFTs have now normalized. I did discuss these findings with the patient. At this time I do not have a clear cause for her dyspnea on exertion but it may be related to her recent illness. Told her that if her symptoms got worse especially if she developed chest pain with exertion or diaphoresis and lightheadedness then she should return to the emergency department. I also told her that she may need to see a central melt specialist if she continues to have symptoms to determine if her symptoms RN anginal equivalent it. Patient was evaluated today by [facility] and was advised not return to work until she is re-evaluated on 11/30/2024 who determine if she needs further isolation due to her positive salmonella test. Differential Diagnosis Differential Diagnoses: The differential diagnosis associated with the presentation includes (See above) Admission/Observation Consideration of admission/observation: Escalation of care including admission/observation considered (Yes) Lab Data MDM Lab Attestation statement: I reviewed the patient's lab results. 11/19/24 10:15 11/19/24 10:15 Labs: Lab Results 11/19/24 11/19/24 Range/Units 10:15 11:07 WBC 6.9 (4.8-10.8) X10*3/uL RBC 4.19 L (4.20-5.50) X10*6/uL Hgb 11.8 L (12.0-16.0) g/dl Hct 35.9 L (37.0-47.0) % MCV 85.7 (80.0-98.0) fL MCH 28.2 (27.0-33.0) pg MCHC 32.9 (31.0-35.0) g/dl RDW 14.4 (11.0-16.0) % Plt Count 312 (160-400) X10*3/uL MPV 9.9 (9.4-12.3) fL Immature Gran % (Auto) 0.3 (0.0-0.4) % Neut % (Auto) 50.6 (45-73) % Lymph % (Auto) 38.7 (20-40) % Gentry % (Auto) 8.1 (2-11) % Eos % (Auto) 1.3 (0-4) % Baso % (Auto) 1.0 (0-2) % Lymph # (Auto) 2.7 (1.2-4.9) X10*3/uL Gentry # (Auto) 0.6 (0.1-1.2) X10*3/uL Eos # (Auto) 0.1 (0.0-0.4) X10*3/uL Baso # (Auto) 0.1 (0.0-0.2) X10*3/uL Abs Immat Gran (auto) 0.02 (0.00-0.03) X10*3/uL Absolute Neuts (auto) 3.5 (2.0-8.3) x10*3/uL Absolute Nucleated RBC 0.000 (0.0-0.012) X10*3/uL Nucleated RBC % (auto) 0.0 (0.0-0.2) /100WBC PT 11.0 (10.9-12.4) SEC INR 1.0 (0.9-1.1) APTT 31.9 (26.7-34.1) SEC D-Dimer High Sensitivty < 150 NG/ML Sodium 141 (135-145) mmol/L Potassium 3.8 (3.3-5.1) mmol/L Chloride 107 (96-108) mmol/L Carbon Dioxide 29 (22-29) mmol/L Anion Gap 9 L (12-20) BUN 12 (9-16) mg/dL Creatinine 0.60 (0.5-1.4) mg/dL Estim Creat Clear Calc 102.3 Estimated GFR > 60 Random Glucose 93 (60-115) mg/dL Lactic Acid 0.6 (0.5-2.0) mmol/L Calcium 9.0 (8.4-10.2) mg/dL Total Bilirubin 0.6 0.6 (0.0-1.0) mg/dL Direct Bilirubin 0.2 (0.0-0.5) mg/dL AST 24 27 (5-31) U/L ALT 18 20 (0-31) U/L Alkaline Phosphatase 74 77 (39-117) U/L Troponin I High Sens < 2.7 (<3.5-17.0) ng/L NT-Pro-B Natriuret Pep 75.7 (<300) pg/mL Total Protein 7.0 7.2 (6.5-8.0) g/dL Albumin 4.1 4.1 (3.5-5.0) g/dL Lipase 47 (8-78) U/L Independent Interpretation I performed an independent interpretation of an: EKG Interpretation: My independent interpretation patient's 12 EKG done on 11/19/2024 at 12:17 hours is as follows: Sinus bradycardia with a rate of 56, normal SD interval, QRS duration QTC interval, no ST segment elevation, no ST segment depression, no significant T-wave abnormalities. Except for the sinus bradycardia, this is a normal EKG. Radiology Impression Discussion of test interpretation with radiology: I have reviewed the radiologist's reading. Radiologist Impression: CT angio chest PE protocol IMPRESSION: No pulmonary embolus is identified. Right adrenal gland mass has previously been worked up by CT on 11/02/2024. Borderline extrahepatic biliary ductal dilation. Consider right upper quadrant abdomen ultrasound if patient's symptoms are suggestive of a biliary abnormality. Fleischner guidelines were followed. Electronically signed by: Franklin Mena MD 11/19/2024 12:30 PM EDT Independent Historian Clinical information obtained from an independent historian. History obtained from or confirmed by: Other ([facility] transfer sheet) External Record Review External record reviewed: Inpatient record Discharge Plan Discharge Clinical Impression: Dyspnea on exertion, Fatigue Patient Disposition: Home, Self-Care Additional Instructions: Your blood work today did not reveal any significant abnormalities to explain your shortness of breath when you exert yourself which is reassuring. Your CT pulmonary angiogram did not reveal any blood clots in your lungs and no other abnormalities of your lungs to explain your shortness of breath. The radiologist did note that your may have borderline extrahepatic biliary ductal dilation. however your liver tests have returned to normal not think this is significant finding. I want you to discuss this abnormality with your primary care doctor at your next visit to determine if he had any further testing. Your EKG was unremarkable. Your marker of heart attack (troponin) was below detectable limits which is reassuring as well. At this time I do not think your heart is the cause of your symptoms however if you developed chest pain with exertion or your shortness of breath with the exertion gets worse then you may need to see a central melt specialist for further evaluation. Follow-up with your doctor in 2 days. Please return to the emergency department if your symptoms get worse or if you develop any symptoms that are concerning to you. CT angio chest PE protocol ...UPPER ABDOMEN: Again seen is a right adrenal mass with punctate calcification measuring 3.8 cm long axis and 11 Hounsfield units Extrahepatic bile duct diameter is 7 mm, previously 5-6 mm. IMPRESSION: No pulmonary embolus is identified. Right adrenal gland mass has previously been worked up by CT on 11/02/2024. Borderline extrahepatic biliary ductal dilation. Consider right upper quadrant abdomen ultrasound if patient's symptoms are suggestive of a biliary abnormality. Fleischner guidelines were followed. Electronically signed by: Franklin Mena MD 11/19/2024 12:30 PM EDT Prescriptions: No Action No Known Home Meds Print Language: Albanian
[2024-11-19 09:54] VITALS: BP 143/70; PULSE 74; RESP 16; O2SAT 99
[2024-11-19 10:20] LABS: MANUAL DIFF FLAG NO
[2024-11-19 10:24] LABS: Hematocrit 35.9 % (37.0-47.0); Hemoglobin 11.8 g/dl (12.0-16.0); Imm Gran Abs Auto 0.02 X10*3/uL (0.00-0.03); Imm Gran Pct Auto 0.3 % (0.0-0.4); Lymphocytes Absolute Auto 2.7 X10*3/uL (1.2-4.9); Mean Corpuscular HGB Conc 32.9 g/dl (31.0-35.0); Mean Corpuscular Hemoglobin 28.2 pg (27.0-33.0); Mean Corpuscular Volume 85.7 fL (80.0-98.0); NRBC Abs Auto 0.000 X10*3/uL (0.0-0.012); NRBC Pct Auto 0.0 /100WBC (0.0-0.2); Platelet Count 312 X10*3/uL (160-400); Red Blood Count 4.19 X10*6/uL (4.20-5.50); White Blood Count 6.9 X10*3/uL (4.8-10.8)
[2024-11-19 10:27] LABS: INTERNATIONAL NORM RATIO 1.0 (0.9-1.1); Prothrombin Time 11.0 SEC (10.9-12.4)
[2024-11-19 10:33] LABS: D Dimer High Sensitivity < 150 NG/ML
[2024-11-19 10:42] LABS: Alanine Aminotransferase 18 U/L (0-31); Albumin Level 4.1 g/dL (3.5-5.0); Alkaline Phosphatase 74 U/L (39-117); Anion Gap 9 (12-20); Aspartate Amino Transferase 24 U/L (5-31); Blood Urea Nitrogen 12 mg/dL (9-16); Calcium 9.0 mg/dL (8.4-10.2); Carbon Dioxide 29 mmol/L (22-29); Chloride 107 mmol/L (96-108); Creatinine Clr Calc Pharmacy 102.3; Estimated Glomerular Filt Rate > 60; Lipase 47 U/L (8-78); Potassium 3.8 mmol/L (3.3-5.1); Sodium 141 mmol/L (135-145); Total Protein 7.0 g/dL (6.5-8.0)
--- OUTSIDE RECORDS SUMMARY | 2024-11-19 10:46 | XMS_ITS | Patient Health Record ---
Author Organization [facility] Address [address] [place] [id number] Care Team Providers Care Hotel Associate Name Role Phone Erwin Daniel MD Primary Care Provider Tello Huang Unavailable [phone] Allergies Allergen (clinical drug ingredient) Drug/Non Drug [...] Coverage End Date Blue Benefits [address] [address] [place] [address] [phone] [id number] Lisette Baker Self - patient is the insured Medical (General) History Surgical History Surgery Date(Month/Year)
[2024-11-19 10:50] LABS: NT Pro B Type Natriuretic Pept 75.7 pg/mL (<300)
[2024-11-19 10:53] LABS: Troponin-I High Sensitivity < 2.7 ng/L (<3.5-17.0)
[2024-11-19 11:23] LABS: Partial Thromboplastin Time 31.9 SEC (26.7-34.1)
[2024-11-19 11:35] LABS: Alanine Aminotransferase 20 U/L (0-31); Albumin Level 4.1 g/dL (3.5-5.0); Alkaline Phosphatase 77 U/L (39-117); Aspartate Amino Transferase 27 U/L (5-31); Total Protein 7.2 g/dL (6.5-8.0)
--- NOTE | 2024-11-19 11:35 | PC.NURSE ---
Addendum entered by Megan Garcia RN 11/19/24 11:36: The patient is a 59-year-old female who was recently admitted for Salmonella enterocolitis. During her hospital stay, she was diagnosed with Salmonella enterocolitis and treated with antibiotics. T Additionally, the patient had a computed tomography (CT) scan during hospitalization, revealing a calcified lipid-rich adenoma on the right adrenal gland, and aorta calcification. She expressed worries about potential other plaques due to a family history of cardiovascular disease. The patient reports feeling weak and tired, particularly in her legs after prolonged inactivity due to hospitalization, but is gradually increasing activity levels. Other symptoms include painful bowel movements, which she suspects are due to hemorrhoids. Patient presents today with SOB and fatigue for the past week, especially upon exertion. Lungs clear bilat. Respirations even and non-labored. Abdomen soft, non-tender with positive bowel sounds. Positive pedal pulses with no edema. 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
[2024-11-19] MEDS: iohexoL 350 MG/ML 100 ML INFUS..BTL IV (12:05)
[2024-11-19 12:42] VITALS: BP 122/74; PULSE 67; RESP 16; TEMP 36.6; O2SAT 96
[2024-11-19 13:07] VITALS: BP 122/74; PULSE 67; RESP 16; TEMP 36.6; O2SAT 96
== END 2024-11-19 13:08 | disposition home or self-care (01) ==
PROVIDERS: Physician Assistant; Emergency Provider Emergency Medicine Emergency Medical Services; PCP Student in an Organized Health Care Education/Training Program
DX: R06.02 Shortness of breath (principal); R53.83 Other fatigue; R00.1 Bradycardia, unspecified; Z79.899 Other long term (current) drug therapy; Z87.891 Personal history of nicotine dependence
CPT/HCPCS: 36415; 71046; 71275; 80053; 80076; 82248; 83605; 83690; 83880; 84484; 85025; 85379; 85610; 85730; 93005; 99285; Q9967

== ENCOUNTER → 2024-11-19 09:42 | Outpatient (BNV) | payer OTHER, SELFPAY | PROVIDERS: Emergency Provider Emergency Medicine Emergency Medical Services; PCP Student in an Organized Health Care Education/Training Program; Visit Provider Internal Medicine | DX: R00.1 Bradycardia, unspecified (principal) | CPT/HCPCS: 93010 ==

== ENCOUNTER → 2024-11-19 09:43 | Outpatient (BNV) | payer OTHER, SELFPAY | PROVIDERS: Emergency Provider Emergency Medicine Emergency Medical Services; PCP Student in an Organized Health Care Education/Training Program; Visit Provider Radiology Diagnostic Radiology | DX: R06.09 Other forms of dyspnea (principal); E27.9 Disorder of adrenal gland, unspecified | CPT/HCPCS: 71046; 71275 ==

== ENCOUNTER 2025-01-05 12:40 | Outpatient (REF) | payer OTHER, SELFPAY ==
[2025-01-11 11:28] LABS: Metanephrine, Free <25 pg/mL (<=57); Normetanephrines, Free 61 pg/mL (<=148); Total Metanephrine, Free 61 pg/mL (<=205)
== END 2025-01-05 12:41 | disposition home or self-care (01) ==
LOC: HO.LAB 12:40
PROVIDERS: PCP Student in an Organized Health Care Education/Training Program; Visit Provider Internal Medicine Endocrinology, Diabetes & Metabolism
DX: Q89.1 Congenital malformations of adrenal gland (principal)
CPT/HCPCS: 36415; 82627; 83835

== ENCOUNTER 2025-01-05 12:40 | Outpatient (AMB) | payer OTHER, SELFPAY ==
--- NOTE | 2025-01-05 12:48 | MHC.OFFVIS ---
Vital Signs 01/05/25 12:56 Height 5 ft 5 in Weight 172 lb 13.478 oz BMI 28.8 BP 104/64 Blood Pressure Location Rt brachial Position Sitting Pulse 83 Pulse Source Pulse Oximeter Pulse Oximetry (%) 97 Oxygen Delivery Method Room Air Intake Visit Reasons: Congenital malformations of adrenal gland Intake Note: New patient internally referred by PCP for Adrenal Mass. Cartography Technician Required: No Accompanied by: Self / Same As Patient Allergies Iodinated Contrast Media (Contrast Dye) Adverse Reaction (Unknown, Verified 01/05/25 12:58) Delayed reaction, Hives and Rashes Medication List - Last Reconciled 01/05/25 by Adriel Webber MD No Known Home Meds HPI Comments Details: 59 YO F who is seen in consultation at the request of PCP for adrenal incidentaloma. Had CT abdomen/pelvis in hospital [date] for which revealed see below . . Denies history of spells with headache, flushing, diaphoresis, abdominal pain or diarrhea. Denies any weight gain, frequent infections, easy bruisability, development of violaceous striae. No History of HTN, No history of anticoagulant use. Denies any weight loss, orthostatic symptoms, hypoglycemia. No history of malignancy or TB. Imagin11/02/24 ADRENAL GLANDS AND KIDNEYS: Right adrenal gland: There is a 44 x 26 x 42 mm well-defined low-density lesion which measures 3.7 Hounsfield units in the noncontrast phase. This lesion has a punctate calcification. Left adrenal gland: Mild soft tissue fullness measuring 9 Hounsfield units without nodular lesion. Labs: [facility] Medical History (Updated 11/20/24 @ 00:00 by Tim Real) Sepsis Hemorrhoid Breast cancer screening Adrenal gland anomaly Annual physical exam Surgical History (Updated 01/05/25 @ 12:59 by VILLA Eduardo) No pertinent past surgical history Family History Mother Heart attack Father High blood pressure Heart attack Social History Household Members: Spouse Housing: House Do you presently have visiting nurse or other home services: No Patient Tobacco Use Status: Former Tobacco user Tobacco use type: Cigarette e-Cigarette/Vaping Use: Never Used Second Hand Smoke Exposure: No service: No Current occupational status: employed 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 Thyroid gland is normal size weighs about 15 g. Assessment & Plan Assessment & Plan (1) Adrenal gland anomaly: Comment: CT imaging during hospitalization demonstrated a adrenal mass and subsequently underwent adrenal protocol that demonstrated a lipid rich adenoma measuring 44 x 26.0 x 42 mm in size. We will refer patient to endocrinology for further evaluation per patient's request Code(s): Q89.1 - Congenital malformations of adrenal gland Category: Medical Plan: 59-year-old white female with a history of an incidentally discovered right adrenal mass. Imaging characteristics are benign. Rule out hypersecretion Plan is to check plasma metanephrines and DHEA-S as well as perform a 1 mg dexamethasone suppression test with dexamethasone and cortisol levels. Assuming non secretory, we will talk to patient about either observing with repeat CAT scan in 6 months versus surgical resection considering size. Masses in the 4-6 cm category which either be observed or resected and imaging characteristics of 0.2 benign. I had a long discussion with the patient and she told me that assuming the biochemical testing is normal she would rather not remove the mass but follow up with serial CAT scan. I will order repeat CAT scan in about 4 months' time Orders: Orders Dexamethasone 1 Week Q89.1 - Congenital malformations of adrenal gland Metanephrines, Plasma Today Q89.1 - Congenital malformations of adrenal gland DHEA Sulfate Today Q89.1 - Congenital malformations of adrenal gland CT abdomen pelvis wo IV con 4 Months Q89.1 - Congenital malformations of adrenal gland Cortisol Random 1 Week Q89.1 - Congenital malformations of adrenal gland Coding Level of Care Code New Pt Level 4 (15415) Diagnoses Adrenal gland anomaly Q89.1
[2025-01-05 12:56] VITALS: BP 104/64; PULSE 83; O2SAT 97; BMI 28.8
--- OUTSIDE RECORDS SUMMARY | 2025-01-05 15:15 | XMS_ITS | Patient Health Record ---
Author Organization [facility] Address [address] [place] [address] Care Team Providers Care Toy Designer Name Role Phone Erwin Daniel MD Primary Care Provider Tello Rodrigez Unavailable [phone] Allergies Allergen (clinical drug ingredient) Drug/Non Drug [...] Coverage End Date Blue Benefits [address] [address] [place] [address] [id number] Lisette Baker Self - patient is the insured Medical (General) History Surgical History Surgery Date(Month/Year)
== END 2025-01-05 13:24 | disposition home or self-care (01) ==
LOC: HO.ENCR 12:40
PROVIDERS: Visit Provider Internal Medicine Endocrinology, Diabetes & Metabolism
DX: Q89.1 Congenital malformations of adrenal gland (principal)
CPT/HCPCS: 99204

== ENCOUNTER 2025-02-08 10:46 | Outpatient (AMB) | payer OTHER, SELFPAY ==
[2025-02-08 11:02] VITALS: BP 138/80; PULSE 83; TEMP 36.3; O2SAT 98; BMI 28.8
--- NOTE | 2025-02-08 11:02 | MHC.PC.OV ---
Vital Signs 02/08/25 11:02 Height 5 ft 5 in Weight 173 lb BMI 28.8 BP 138/80 Blood Pressure Location Lt brachial Position Sitting Pulse 83 Pulse Source Pulse Oximeter Temp 97.4 F Temp Source Temporal Artery Scan Pulse Oximetry (%) 98 Oxygen Delivery Method Room Air Intake Visit Reasons: routine - see comments Account Officer Required: No Accompanied by: Self / Same As Patient Allergies Iodinated Contrast Media (Contrast Dye) Adverse Reaction (Unknown, Verified 02/08/25 11:03) Delayed reaction, Hives and Rashes Medication List - Last Reconciled 02/08/25 by Jose Spangler MD No Known Home Meds Tobacco use date assessed: 02/08/25 Dental Screening Dental Screen Date: 02/08/25 Did you have a dental visit in the last 12 months?: Yes Did you have a dental problem in the last 6 months where you did not have access to dental care?: No HPI HPI Comments History of Present Illness Details History of Present Illness The patient is a 59 year old female presenting for follow-up after a recent Salmonella infection, and to discuss new concerns including hair loss, a rash, and review lab results. Following a recent Salmonella infection, the patient reports new onset of bloating episodes more frequently than before. She also reports hair thinning and increased hair loss, noticed after showering about two weeks ago, which she associates with the Salmonella infection due to potential malnutrition and dehydration during the illness. She has not used any treatments and prefers to observe it for now. The patient has developed a persistent rash at the corner of her mouth, which started as three pimples. The rash is not pruritic or burning and does not crust over. She tried hydrocortisone, which reduced redness but did not resolve it, and triple antibiotic ointment, which made it appear more red. She recalls having a similar lesion years ago that was treated with a long course of antibiotics by a clipping marker. The patient is being followed by an sap project manager for an adrenal mass, with surveillance CT scans every six months. Previous workup by endocrinology included tests for cortisone and metanephrines, which were normal. A dexamethasone suppression test was considered but not completed. Past lab work showed prediabetes and elevated cholesterol, including LDL and triglycerides. The patient initially disputed the A1c result, believing it was affected by her non-fasting state and altered metabolism. Regarding preventive care, the patient is due for a colonoscopy but has declined the procedure and Cologuard testing, citing a fear of complications after witnessing a negative outcome. She notes she is not constipated or bleeding and had a negative stool pathogen screen during a recent hospitalization. Medical History: - Salmonella infection, recent - Adrenal mass, under surveillance - Prediabetes - Hypercholesterolemia - History of similar facial rash requiring long-term antibiotics - Hospitalization: Recent, for Salmonella Medications: - Hydrocortisone cream: Used topically on facial rash, with some improvement in redness. - Triple antibiotic ointment: Used topically on facial rash, which worsened redness. Diagnostic Results: - Labs from prior visit: Normal blood counts, electrolytes, and thyroid function. - Endocrinology labs: Normal cortisone and metanephrines. - Previous A1C: Indicated prediabetes. - Previous lipid panel: Elevated total cholesterol, LDL was 38, and triglycerides were elevated. - Stool studies (during hospitalization): Negative for occult blood, positive for pathogen (Salmonella). 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 - Diet: Reports she generally eats healthy and cooks at home. - Exercise: Reports walking for exercise. - Stress: The patient feels her job is difficult and stressful but denies having an issue with stress. Health Maintenance - Colon Cancer Screening: The patient is due for a colonoscopy but declined the procedure and also declined Cologuard testing, citing fear of complications. - Diet and Nutrition: Discussed the need to reduce intake of sweets, breads, and pastas to manage prediabetes and hypercholesterolemia. - Exercise: The patient reports walking as a form of exercise. - Adrenal Mass Surveillance: The patient is followed by endocrinology and has a surveillance CT scan scheduled in four months. Patient was informed and verbally consented to the use of an ambient scribe for clinic note documentation during this visit. Vital signs reviewed. Comprehensive history, review of systems, and physical exam completed. Medications, allergies, and problem list reviewed and updated. Counseling provided on nutrition, regular exercise, sleep hygiene, and moderation of alcohol use. Discussed age-appropriate screenings (mammogram, colonoscopy, Pap, bone density) and immunizations (flu, COVID, shingles, Tdap). Screened for depression, fall risk, and home safety; no current concerns. Discussed stress management, dental and vision care, and importance of ongoing preventive follow-up. Routine labs ordered for metabolic and lipid screening. Patient educated on healthy lifestyle and agrees with the plan. [facility] Medical History (Updated 02/08/25 @ 11:38 by Jose Spangler MD) Facial rash Hair loss Mixed hyperlipidemia Prediabetes Sepsis Hemorrhoid Breast cancer screening Adrenal gland anomaly Annual physical exam Surgical History No pertinent past surgical history Family History Mother Heart attack Father High blood pressure Heart attack Social History Household Members: Spouse Housing: House Do you presently have visiting nurse or other home services: No Patient Tobacco Use Status: Former Tobacco user Tobacco use type: Cigarette e-Cigarette/Vaping Use: Former Use Second Hand Smoke Exposure: No service: No Current occupational status: employed 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 1. Little interest or pleasure in doing things: not at all 2. Feeling down, depressed, or hopeless: not at all 3. Trouble falling or staying asleep, or sleeping too much: not at all 4. Feeling tired or having little energy: not at all 5. Poor appetite or overeating: not at all 6. Feeling bad about yourself - or that you are a failure or have let yourself or your family down: not at all 7. Trouble concentrating on things, such as reading the newspaper or watching television: not at all 8. Moving or speaking so slowly that other people could have noticed. Or the opposite - being so fidgety or restless that you have been moving around a lot more than usual: not at all 9. Thoughts that you would be better off or of hurting yourself in some way: not at all Total score: 0 Depression Screening Interpretation: Negative Depression Screening Done: Yes Source: Developed by Drs. Adriel Corona, Yolanda Arboleda, Brice Ibrahim and colleagues, with an educational bety from [employer]. Thrive Questionnaire Date Thrive assessed: 02/08/25 I am a: Patient Within the past 12 months, did the food you bought not last and you didn't have the money to get more?: Never true Within the past 12 months, did you worry whether your food would run out before you got money to buy more?: Never true Do you have trouble paying for medicines?: No Do you have trouble getting transportation to medical appointments?: No Do you have trouble paying your heating and electricity bill?: No Do you have trouble taking care of your child, family member or friend?: No Do you have trouble with day-to-day activities such as bathing, preparing meals, shopping, managing finances, etc.?: No Are you currently unemployed and looking for a job?: No Are you interested in more education?: No THRIVE Score: 0 AUDIT C Alcohol Use Questionnaire (AUDIT-C) 1. How often do you have a drink containing alcohol?: Monthly or less 2. How many drinks containing alcohol do you have on a typical day when you are drinking?: 1 or 2 3. How often do you have six or more drinks on one occasion?: Less than monthly Total Score: 2 YOSELIN-7 AMB Questionnaire YOSELIN-7 Date YOSELIN - 7 assessed: 02/08/25 Feeling nervous, anxious, or on edge: 0 = Not at all Not being able to stop or control worryin = Not at all Worrying too much about different things: 0 = Not at all Trouble relaxin = Not at all Being so restless that it is hard to sit still: 0 = Not at all Becoming easily annoyed or irritable: 0 = Not at all Feeling afraid as if something awful might happen: 0 = Not at all Total YOSELIN-7 score (0-4 normal; 5-9 mild; 10-14 moderate; 15-21 severe): 0 Source: Developed by Drs. Adriel Corona, Yolanda Arboleda, Brice Ibrahim and colleagues, with an educational bety from [employer]. Review of Systems Narrative Review of Systems - Constitutional: Reports feeling tired, denies abnormal stress. - Integumentary/Hair: Reports increased hair loss and change in hair texture for the past two weeks. - Skin: Reports a persistent red rash at the corner of her mouth, which does not burn, itch, or crust over. - Gastrointestinal: Reports new onset of bloating episodes since a recent Salmonella infection. - Denies constipation or bleeding. All systems reviewed & are unremarkable except as reviewed in HPI and above Physical exam (Primary Care) Vital Signs: Last Vital Signs Temp 97.4 F 02/08/25 11:02 Pulse 83 02/08/25 11:02 BP 138/80 02/08/25 11:02 Pulse Ox 98 02/08/25 11:02 Oxygen Delivery Method Room Air 02/08/25 11:02 BMI result Body Mass Index 28.8 Tobacco/Smoking Status: Tobacco use Status Tobacco use date assessed 02/08/25 02/08/25 11:09 Patient Tobacco Use Status Former Tobacco user 02/08/25 11:09 Tobacco use type Cigarette 02/08/25 11:09 e-Cigarette/Vaping Use Former Use 02/08/25 11:09 PHQ-9: PHQ-9 Score PHQ-9: Total score 0 02/08/25 11:09 Depression Screening Interpretation: Negative Thrive Assessment: Date of Thrive Assessment Date Thrive assessed 02/08/25 02/08/25 11:09 Narrative Physical Exam General: +Alert and oriented, Well nourished, No acute distress. Eye: Pupils are equal, round and reactive to light, Intact accommodation, Extraocular movements are intact, Normal conjunctiva, Vision unchanged. HENT: Normocephalic, Atraumatic, Tympanic membranes are clear, Normal hearing, Oral mucosa is moist, No pharyngeal erythema, Ear canals patent. Respiratory: Lungs CTA bilaterally, No wheeze, Respirations are non-labored. Cardiovascular: Regular rate, Regular rhythm, S1 auscultated, S2 auscultated, No murmur, Good pulses equal in all extremities, Normal peripheral perfusion, No edema. Gastrointestinal: Soft, Non-tender, Non-distended, Normal bowel sounds, No organomegaly, Reports of bloating episodes. Musculoskeletal: Normal range of motion, Normal strength, No tenderness, No swelling, No deformity, Normal gait. Integumentary: Warm, Dry, [place], Intact, Rash at the corner of the mouth, slightly raised, not crusting. Neurologic: Alert, Oriented, Normal sensory, Normal motor function, No focal defects, Cranial Nerves II-XII are grossly intact, Normal deep tendon reflexes. Psychiatric: Cooperative, Appropriate mood & affect, Normal judgment. 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 - This is likely telogen effluvium, a temporary response to a physiological stressor. - There is no established direct link between Salmonella and hair loss. - Continue to monitor. - If it worsens, she can use [id number] topical minoxidil or follow up with a clipping marker. - The patient currently prefers to observe without intervention. Code(s): L65.9 - Nonscarring hair loss, unspecified Category: Medical (2) Facial rash: Comment: - The patient presents with a persistent, non-pruritic red rash at the corner of her mouth. - This is possibly a cold sore (herpes simplex). - Prescribe a 7-day course of valacyclovir. - The prescription will be sent to [facility] - If there is no improvement, she should contact her clipping marker. Code(s): R21 - Rash and other nonspecific skin eruption Category: Medical (3) Prediabetes: Comment: - Previous labs showed prediabetes - The patient disputes the A1c result, and wants to recheck her labs, it was explained to her that the A1c is an average over 3 months, however a repeat will be ordered for today Code(s): R73.03 - Prediabetes Category: Medical (4) Mixed hyperlipidemia: Comment: - Previous labs showed elevated cholesterol. - Ordered labs for today to recheck of lipid panel. - Advised on dietary modifications, including reducing sweets, carbohydrates, breads, and pastas. Code(s): E78.2 - Mixed hyperlipidemia Category: Medical (5) Adrenal gland anomaly: Comment: CT imaging during hospitalization demonstrated a adrenal mass and subsequently underwent adrenal protocol that demonstrated a lipid rich adenoma measuring 44 x 26.0 x 42 mm in size. - The patient is followed by endocrinology for an adrenal mass, with surveillance imaging every 6 months. - Her next scan is in four months. - Continue to follow with her sap project manager. Code(s): Q89.1 - Congenital malformations of adrenal gland Category: Medical Plan: Health Maintenance: - Colon Cancer Screening: The patient is due for a colonoscopy but declined the procedure and also declined Cologuard testing, citing fear of complications. - Diet and Nutrition: Discussed the need to reduce intake of sweets, breads, and pastas to manage prediabetes and hypercholesterolemia. - Exercise: The patient reports walking as a form of exercise. - Adrenal Mass Surveillance: The patient is followed by endocrinology and has a surveillance CT scan scheduled in four months. Patient was informed and verbally consented to the use of an ambient scribe for clinic note documentation during this visit. Plan I discussed the patient's recent onset of hair loss, explaining it is likely a temporary physiological stress response (telogen effluvium) from her recent Salmonella infection, and that there is no direct established link. We discussed management options, including observation, [id number] minoxidil, or a dermatology referral if symptoms worsen; the patient prefers to watch it for now. Regarding the rash on her mouth, I suspect it may be a cold sore and am prescribing a trial of valacyclovir for 7 days, with instructions to see her clipping marker if it does not resolve. We reviewed her previous lab results indicating prediabetes and hypercholesterolemia. I explained that the A1c is an average and not affected by non-fasting status. I have ordered a repeat A1c and lipid panel for her to complete. I counseled her on dietary changes, including limiting sweets and carbohydrates. I strongly recommended colon cancer screening with a colonoscopy, explaining that prevention is better than cure. When she declined, I offered Cologuard as an alternative, which she also refused. I acknowledged and respected her decision. We confirmed she is continuing to follow up with endocrinology for her adrenal mass. I reassured her that her blood pressure of 138/80 mmHg is acceptable. I advised her to relax and reduce stress and scheduled a follow-up visit in six months, with her annual physical to remain in November. Orders: Orders Lipid Panel Today E78.2 - Mixed hyperlipidemia Hemoglobin A1c Today R73.03 - Prediabetes Medications: New valacyclovir 1,000 mg PO TID 21 tabs 0RF 7 days Patient Instructions: - For the rash on your mouth, take the valacyclovir prescription as directed for seven days. - If the rash does not get better, please contact your clipping marker. - The prescription has been sent to the [facility] on [address] in [place]. - You can go to the lab to have your blood drawn for the A1c and cholesterol tests. - You can go at any time, but if you want to go while fasting, you can do that too. - Continue to monitor your hair loss. - If it gets worse, you can try using [id number] minoxidil (a hairspray). - Try to reduce your intake of sweets, breads, pastas, and other carbohydrates. - Continue following up with your sap project manager for the adrenal mass. - We will see you back in the office in six months for a check-in. - Your next yearly physical is scheduled for November. - For bloating, you can try an [id number] product like Gas-X.
== END 2025-02-08 11:36 | disposition home or self-care (01) ==
LOC: HO.HMCHD 10:47
PROVIDERS: PCP Student in an Organized Health Care Education/Training Program; Visit Provider Student in an Organized Health Care Education/Training Program
DX: L65.9 Nonscarring hair loss, unspecified (principal); R21 Rash and other nonspecific skin eruption; R73.03 Prediabetes; E78.2 Mixed hyperlipidemia; Q89.1 Congenital malformations of adrenal gland